=== PATIENT | male | born 1935 | race Caucasian/White ===

== ENCOUNTER 2018-05-12 11:18 | Inpatient (IN) | payer OTHER ==
[~2018-05-12] VITALS: Ht 185.4 cm; Wt 86.4 kg
[~2018-05-12 11:18] MED LIST: ACCUNEB0.63 MG/3 INH; ACID CONTROL20 MG PO; ACYCLOVIR 400400 MG PO; ALBUTEROL2.5 MG/31 INH; ALLEGRA60 MG PO; ALPRAZOLAM 0.0.25 M1 PO; AMOXICILLIN 50500 MG PO; AMOXICILLIN875 MG PO; ANASPAZ0.125 MG PO; ANASPAZ0.125 MG SUBLING; APAP500 PO; CASODEX 50 MG T50 MG PO; CLEAR EYES COMP15 ML OPHTHALMIC; CLOBETASOL PROP60 G3; COMPAZINE10 MG; COMPAZINE10 MG PO; CYCLOSPORINE OPTH; DEXILANT60 MG PO; DIPHEN SW&SWALLOW; DUONEB 2.5-0.5 M3 ML INH; FML 0.1% 10ML10 M1 OPHTHALMIC; FOLIC ACID 40400 MC1 PO; FOLIC ACID PO; FOLIC ACID1 MG; KEFLEX500 MG PO; LASIX 20 MG TAB20 MG PO; LIDO SW&SWALLOW; MUPIROCIN15 GM TP; NAPROSYN500 MG PO; NASONEX17 GM; NORCO 5-325 TA1 EACH; NORCO 5-325 TA1 EACH PO; NYSTATIN SW&SWALLOW; OXYBUTYNIN 5 MG5 M2 PO; OXYCODONE HCL5 M1 PO; PAIN & FEVER325 MG PO; PREDNISONE 10 M10 MG; PREDNISONE 20 M20 M1 PO; PREDNISONE 20 M20 MG PO; PREDNISONE 5 MG5 M1; PREDNISONE 5 MG5 M1 PO; PREVACID 30MG C30 M1 PO; PREVACID30 MG PO; REGLAN 10 MG TA10 MG PO; RESTORIL15 MG PO; SENNA-S TABLET1 EACH PO; TAMSULOSIN HCL0.4 MG PO; VENTOLIN HFA 1818 GM INH; VITAMIN B-12100 MC1 PO; XANAX 0.25 MG0.25 MG PO; [UNRECOGNIZED DRUG - CODE]
[2018-05-12 11:20] VITALS: BP 153/79
[2018-05-12 11:40] LABS: HEMATOCRIT 45.4 % (42.0-52.0); MCH 33.4 pg (26.0-34.0); MCHC 33.2 g/dL (28.0-37.0); MCV 100.6 fL (80.0-100.0); MPV 8.8 fl. (7.2-11.1); NUCLEATED RBCS 0 /100WBC; PLATELET COUNT* 160 thou/uL (150-400); RBC 4.51 mil/uL (4.50-6.00); RDW-CV 13.4 % (10.5-14.5); WBC 20.7 thou/uL (4.0-11.0)
[2018-05-12 11:47] LABS: ANION GAP 5 mmol/L (7-16); BUN 23 mg/dL (7-18); CALCIUM 8.6 mg/dL (8.5-10.1); CHLORIDE 97 mmol/L (98-107); CO2 30 mmol/L (21-32); CREATININE 1.2 mg/dL (0.6-1.3); GLUCOSE 131 mg/dL (70-99); POTASSIUM 4.1 mmol/L (3.5-5.1); SODIUM 132 mmol/L (136-145)
[2018-05-12 11:53] LABS: APTT 30.9 Seconds (25.0-31.3); PROTIME 10.7 Seconds (9.20-11.50)
[2018-05-12 11:58] LABS: ALBUMIN 2.8 g/dL (3.4-5.0); ALKALINE PHOSPHATASE 127 U/L (46-116); NT-PRO BRAIN NAT PEPTIDE 127 pg/mL (<300); SGOT 39 U/L (15-37); SGPT 68 U/L (30-65); TOTAL BILIRUBIN 0.6 mg/dL (<0.1-1.0); TOTAL PROTEIN 7.2 g/dL (6.4-8.2); TROPONIN-I LEVEL <0.06 ng/mL (<0.06)
[2018-05-12 12:23] LABS: ABSOLUTE LYMPHOCYTES 7.9 thou/uL (0.8-5.3); ABSOLUTE MONOCYTES 0.6 thou/uL (0.0-1.2); ABSOLUTE NEUTROPHILS 12.2 thou/uL (1.6-8.1); PLATELET ESTIMATE ADEQUATE
[2018-05-12 12:24] LABS: ANISOCYTOSIS 1+; POIKILOCYTOSIS 1+
[2018-05-12 13:15] LABS: BE -0.2 mmol/L (-2 to +3); HCO3 23.8 mmol/L (22.0-26.0); PCO2 37.2 mmHg (35.0-45.0); PO2 76.2 mmHg (75.0-100.0); pH 7.424 (7.340-7.450)
--- NOTE | 2018-05-12 16:18 | EKG ---
[place] [address] ELECTROCARDIOGRAM REPORT Name: JAMES MIN Room: [place] [address] ADM IN M.R.#: [id number] Admission: 05/12/18 Attend Phys: Debbie Guardado MD Discharge: Date of : 39 Report #: [id number] THIS REPORT FOR: //name// [facility] ED Test Date: 2018-05-12 Test Time: 11:25:28 Pat Name: JAMES MIN Department: Room: [facility] Gender: M Prizer Hand: : 1935 Requested By: Regulo Massey Order Number: [id number] MD: David Hernandez Measurements Intervals [place] Rate: 90 P: 85 CA: 164 QRS: 87 QRSD: 107 T: 44 QT: 350 QTc: 429 Interpretive Statements Sinus rhythm Borderline right axis deviation Compared to ECG 06/24/2013 19:43:30 No significant changes Electronically Signed On 05-12-2018 16:18:41 CDT by David Hernandez [email or web address] <ELECTRONICALLY SIGNED> By: David Hernandez MD, [facility] 05/12/18 1618 1125 1125 David Hernandez MD, FAC /EPI
[2018-05-12 17:27] VITALS: BP 134/81
[2018-05-12 18:00] VITALS: BP 129/52
--- NOTE | 2018-05-12 18:12 | NUR ---
PATIENT PRESENTED TO 218 PER CART THIS EVENING. PATIENT IS A&O X 4. HE DENIES PAIN. PATIENT PLACED ON TELE MONITOR. TELE SHOWS NSR. PATIENT ORIENTED TO ROOM. DIET ORDERED. PATIENT IS RESTING IN BED AT THIS TIME. TELE SHOWS SR. PATIENT AND FAMILY EDUCATED ON FALL PRECAUTIONS.
[2018-05-12] MEDS ORDERED: IMBRUVICA420 MG PO (18:42)
[2018-05-12 21:01] VITALS: BP 164/89
[2018-05-13] VITALS: BP 115/55
[2018-05-13 04:00] VITALS: BP 129/71
--- NOTE | 2018-05-13 05:07 | NUR ---
PT IS ABLE TO COMMUNICATE HIS NEEDS TO STAFF EFFECTIVELY. CURRENT PAIN MEDICATION REGIMEN HAS BEEN ADEQUATE FOR CONTROLLING HIS PAIN UP TO THIS TIME. PT HAS A RIGHT CHEST PORT FOR CHEMO THAT WE ARE NOT ACCESSING AT THIS TIME PER PT'S REQUEST.
[2018-05-13 05:31] LABS: HEMATOCRIT 43.1 % (42.0-52.0); HEMOGLOBIN 14.5 gm/dL (14.0-18.0); MCH 33.7 pg (26.0-34.0); MCHC 33.6 g/dL (28.0-37.0); MCV 100.4 fL (80.0-100.0); MPV 9.1 fl. (7.2-11.1); RBC 4.29 mil/uL (4.50-6.00); RDW-CV 13.9 % (10.5-14.5); WBC 21.1 thou/uL (4.0-11.0)
[2018-05-13 05:34] LABS: CALCIUM 8.6 mg/dL (8.5-10.1); CREATININE 1.2 mg/dL (0.6-1.3); POTASSIUM 3.9 mmol/L (3.5-5.1)
[2018-05-13 08:04] VITALS: BP 153/75
--- NOTE | 2018-05-13 09:26 | NUR ---
ASSUMED CARE OF PT THIS AM AROUND 0715- DIRECTOR OF MECHANICAL ENGINEERING IN PLACE ORDERED, TRACING SR- UPON ASSESSMENT PT NOTED TO BE RESTING IN BED, WATCHING TV- PT A&O X4- CONTINENT OF BOWEL AND BLADDER- UP AD-JUANCHO IN ROOM, STEADY GAIT NOTED-DIMINISHED LUNG SOUNDS NOTED- DYSPNEA NOTED ON EXERTION- VSS, O2 SAT 92% ON 2L VIA NC- COUGH NOTED WITH SMALL THICK YELLOW SPUTUM NOTED- ABDOMEN SOFT/ROUND/NON-TENDER, BS X4 QUADS- LAST BM REPORTED 05/12/18- IV NOTED TO RIGHT AC INTACT AND SL- IV ABT GIVEN THIS AM PRESCRIBED, NO ADVERSE REACTIONS TO NOTE- GOOD PO INTAKE NOTED THIS AM WITH BREAKFAST- PT DENIES ANY C/O PAIN/DISCOMFORT AT THIS TIME- CALL LIGHT AND PERSONAL BELONGINGS WITH IN REACH- HOURLY ROUNDS IN PLACE R/T SAFETY/NEEDS- ALL NEEDS MET AT THIS TIME-WCTM
[2018-05-13 11:47] VITALS: BP 130/69
--- NOTE | 2018-05-13 13:58 | NUR ---
Pt is A&O. Resides at home with his . Normally active and independent. No DME. No hx of HH or SNF. Pt states that he use to have home o2, but does not currently. Pt anticipates that he will need home o2 at dc. Pt's goal is to return home at dc, Pt anticipates dc within the next few days. Following.
[2018-05-13 15:43] VITALS: BP 119/66
--- NOTE | 2018-05-13 16:20 | NUR ---
PT CURRENLTY RESTING IN BED SIDE CHAIR, WATCHING TV- CONTRACT RUNNER IN PLACE ORDERED, TRACING SR- IV TO RIGHT AC INTACT AND SL- GOOD PO INTAKE NOTED THIS SHIFT WITH MEALS- CONTINUES ON O2 AT 2L VIA NC- PT NOTED TO BE UP WALKING AROUND ROOM THIS SHIFT, TOLERATING WELL- DENIES ANY C/O PAIN/DISCOMFORT AT THIS TIME- MAKES NEEDS KNOWN- ALL NEEDS MET AT THIS TIME-WCTM
[2018-05-13 19:30] VITALS: BP 118/69
[2018-05-14] VITALS: BP 114/56
[2018-05-14 05:24] LABS: HEMATOCRIT 39.8 % (42.0-52.0); HEMOGLOBIN 13.3 gm/dL (14.0-18.0); MCH 33.6 pg (26.0-34.0); MCHC 33.5 g/dL (28.0-37.0); MCV 100.5 fL (80.0-100.0); MPV 8.9 fl. (7.2-11.1); RBC 3.96 mil/uL (4.50-6.00); RDW-CV 13.7 % (10.5-14.5); WBC 13.8 thou/uL (4.0-11.0)
[2018-05-14 05:49] LABS: ALBUMIN 2.2 g/dL (3.4-5.0); CALCIUM 8.4 mg/dL (8.5-10.1); MAGNESIUM 2.3 mg/dL (1.8-2.4); TOTAL BILIRUBIN 0.3 mg/dL (<0.1-1.0); TOTAL PROTEIN 5.1 g/dL (6.4-8.2)
--- NOTE | 2018-05-14 06:55 | NUR ---
PATIENT RESTED WELL THROUGH THE NIGHT. UP AD JUANCHO IN ROOM. DENIES PAIN OR NEEDS. REPORT GIVEN TO ONCOMING NURSE.
[2018-05-14 07:47] VITALS: BP 115/67
--- NOTE | 2018-05-14 08:28 | NUR ---
ASSUMED CARE OF PT THIS AM AROUND 714- MS STATUS IN PLACE AND MAINTAINED- UPON ASSESSMENT PT NOTED TO BE UP SITTING IN BED SIDE CHAIR- UP AD-JUANCHO IN ROOM, STEADY GAIT NOTED- CONTINENT OF BOWEL AND BLADDER-DIMINISHED LUNG SOUNDS, COUGH NOTED THIS AM- VSS, ,O2 SAT 91% ON 2L VIA NC- ABDOMEN SOFT/FLAT/NON-TENDER, BS X4 QUADS- LAST BM REPORTED 05/12/18- +1 BLE EDEMA NOTED, LEG ELEVATION ENCOURAGED- IV NOTED TO RIGHT AC INTACT AND SL- IV ABT GIVEN THIS AM PRESCIBED- DENIES ANY C/O PAIN/DISCOMFORT THIS AM- CALL LIGHT AND PERSONLA BELONGINGS WITH IN REACH- HOURLY ROUNDS IN PLACE R/T SAFETY/NEEDS- ALL NEEDS MET AT THIS TIME-WCTM
[2018-05-14 12:00] VITALS: BP 130/67
--- NOTE | 2018-05-14 16:24 | NUR ---
PT ARLEENENLTY RESTING IN BED SIDE CHAIR IN ROOM- NOTED TO JOHN UP ABULATING FREQUENTLY IN ROOM, TOLERATING WELL- CONTIUES ON 2L O2 PER NC- IV TO RIGHT AC INTACT AND SL- GOOD PO INTAKE NOTES WITH MEALS- DENIES ANY C/O PAIN/DISCOMFORT AT THIS TIME- ORDERS RECIEVED THIS SHIFT FOR PT TO TRANSFER TO MED SURG ROOM OF 305- REPORT GIVEN TO ADOLPH QUIÑONES TO ASSUME CARE VIA PHONE WITH ALL QUESTIONS AND CONCERNS ADDRESSED- BELONGINGS TO BE PACKED AND PT TRANSFERED SHORTLY- ALL NEEDS MET AT THIS TIME-WCTM
[2018-05-14 16:37] VITALS: BP 126/66
[2018-05-14 17:15] VITALS: BP 155/84
--- NOTE | 2018-05-14 17:15 | NUR ---
ASSUMED CARE OF PATIENT AT THIS TIME. REPORT RECEIVED FROM MAKEDA FARFAN. PATIENT SETTLED TO ROOM. VITALS TAKEN AND DOCUMENTED. PATIENT DENIES ANY PAIN. PATIENT DENIES ANY NEEDS AT THIS TIME. CALL LIGHT WITHIN REACH. WILL CONTINUE TO MONITOR.
[2018-05-14 22:04] VITALS: BP 134/74
[2018-05-15 05:05] LABS: ABSOLUTE LYMPHOCYTES 3.2 thou/uL (0.8-5.3); ABSOLUTE MONOCYTES 0.3 thou/uL (0.0-1.2); ABSOLUTE NEUTROPHILS 9.8 thou/uL (1.6-8.1); BASOPHILS 0.1 %; HEMATOCRIT 41.8 % (42.0-52.0); HEMOGLOBIN 13.8 gm/dL (14.0-18.0); LYMPHOCYTES 24.1 %; MCH 33.1 pg (26.0-34.0); MCHC 32.9 g/dL (28.0-37.0); MCV 100.5 fL (80.0-100.0); MONOCYTES 2.6 %; MPV 8.9 fl. (7.2-11.1); NUCLEATED RBCS 0 /100WBC; PLATELET COUNT* 137 thou/uL (150-400); POLYS 73.2 %; RBC 4.16 mil/uL (4.50-6.00); RDW-CV 13.8 % (10.5-14.5); WBC 13.4 thou/uL (4.0-11.0)
[2018-05-15 05:07] LABS: CALCIUM 8.8 mg/dL (8.5-10.1); CREATININE 1.1 mg/dL (0.6-1.3)
[2018-05-15 05:29] LABS: PREALBUMIN 17.1 mg/dL (18.0-35.7)
--- NOTE | 2018-05-15 05:47 | NUR ---
PT SLEPT ON AND OFF. TESSALON HOUSTON GIVEN AT SHIFT CHANGE FOR CO FREQUENT COUGH WITH FAIR RESULT. O2 2L NC. RAC SL, SOLUMEDROL GIVEN ORDERED. HYDROCODONE GIVEN WITH FAIR RESULT. RT TX GIVEN ORDERED. UP AD JUANCHO IN ROOM WITH O2. AM LABS DRAWN. ABLE TO USE CALL LITE AND MAKE NEEDS KNOWN.
[2018-05-15 08:00] VITALS: BP 92/70
[2018-05-15 16:36] VITALS: BP 146/81
--- NOTE | 2018-05-15 18:11 | NUR ---
PATIENT RESTING UP IN CHAIR. PATIENT DENIES ANY PAIN. PATIENT IS UP AD JUANCHO IN ROOM WITH OXYGEN. PATIENT WOULD LIKE TO WEAN OFF OXYGEN BEFORE DISCHARGE. PATIENT IS ON 2L/NC AT THIS TIME. PATIENT IS SOB WITH EXERTION. PATIENT HAS FAIR APPETITE. PATIENT DENIES ANY NEEDS AT THIS TIME. WILL CONTINUE TO MONITOR.
[2018-05-16] VITALS: BP 109/58
[2018-05-16 04:56] LABS: HEMATOCRIT 39.3 % (42.0-52.0); HEMOGLOBIN 13.2 gm/dL (14.0-18.0); MCH 33.6 pg (26.0-34.0); MCHC 33.6 g/dL (28.0-37.0); MCV 99.9 fL (80.0-100.0); MPV 9.2 fl. (7.2-11.1); NUCLEATED RBCS 0 /100WBC; PLATELET COUNT* 114 thou/uL (150-400); RBC 3.94 mil/uL (4.50-6.00); RDW-CV 13.8 % (10.5-14.5); WBC 11.2 thou/uL (4.0-11.0)
[2018-05-16 06:07] LABS: ALBUMIN 2.4 g/dL (3.4-5.0); CALCIUM 8.2 mg/dL (8.5-10.1); CREATININE 1.1 mg/dL (0.6-1.3); POTASSIUM 4.5 mmol/L (3.5-5.1); TOTAL BILIRUBIN 0.4 mg/dL (<0.1-1.0)
[2018-05-16 06:08] LABS: ABSOLUTE NEUTROPHILS 8.2 thou/uL (1.6-8.1); METAMYELOCYTES 1 %; MYELOCYTES 1 %
[2018-05-16 06:09] LABS: TOXIC GRANULATION 3+
[2018-05-16 06:11] LABS: ABSOLUTE LYMPHOCYTES 2.9 thou/uL (0.8-5.3); ABSOLUTE MONOCYTES 0.1 thou/uL (0.0-1.2)
[2018-05-16 06:14] LABS: PLATELET ESTIMATE DECREASED
--- NOTE | 2018-05-16 07:39 | NUR ---
PT RECEIVED TESSALON PERLE AND MUCINEX TABS AT HS AND PT STATES HIS COUGH WAS A LITTLE BETTER OVERNIGHT. STATES HE STILL DID NOT SLEEP MUCH BUT GOT SOME REST. O2 2L. RT TX GIVEN SCHEDULED. UP AD JUANCHO IN ROOM. AOX4, PLEASANT. ABLE TO USE CALL LITE AND MAKE NEEDS KNOWN. MINH THAPA. AM LABS.
[2018-05-16 08:40] VITALS: BP 134/75
--- NOTE | 2018-05-16 16:09 | NUR ---
SIPHONER SPOKE TO PATIENT TO DISCUSS DISCHARGE PLANNING NEEDS. PATIENT INFORMS THAT RT INFORMED HIM THAT HE MAY NEED O2 AT D/C, BUT HE DOES NOT WANT IT. REST AND EXERCIES SATS ORDRED. CM WILL REMAIN AVAILABLE TO ASSIST AND FOLLOW NEEDED.
[2018-05-16 16:42] VITALS: BP 118/60
--- NOTE | 2018-05-16 18:35 | NUR ---
PATIENT UP IN CHAIR. PATIENT DENIES ANY PAIN. PATIENT HAS COUGH, TESSALON PERLE AND MUCINEX GIVEN WITH SOME RELIEF. PATIENT UNABLE TO SLEEP WELL DUE TO COUGH. PATIENT HAS OXYGEN ON AT 2L/NC. PATIENT IS UP AD JUANCHO IN ROOM. PATIENT DENIES NAY NEEDS AT THIS TIME. CALL LIGHT WITHIN REACH. WILL CONTINUE TO MONITOR.
[2018-05-16 20:00] VITALS: BP 118/84
--- NOTE | 2018-05-17 01:09 | NUR ---
ASSESSMNT: PT REMAIN ALERT AND ORIENT TIMES FOUR. PT WAS SITTING UP IN THE CHAIR AT SHIFT CHANGE. DENIES PAIN. DOES HAVE A PRODUCTIVE COUGH, WITH THICK TANNISH-YELLOWISH SPUTUM PER PT. TESSILON PEARLES GIVE PT LOTS OF RELIEF FROM COUGHING PRN. PT HAD 3+ EDEMA IN [place] FEET AND 2+ EDEMA IN [place] LEGS. THTH APPLIED AND PT WAS GRATEFUL FOR THEM. BREATHING TX CONTINUE ORDERED. VSS, AFEBRILE. TOLERATING PO INTAKE AND REGULAR DIET, DOES STATE THAT HE DOES NOT EAT VERY MUCH. UP AD JUANCHO WITH STEADY GAIT. ABD DISTENDED, SOFT/ROUND. BM TODAY. SLOW PROGRESS TOWARDS DC GOALS. WILL CONTINUE TO MONITOR.
[2018-05-17 04:36] LABS: ABSOLUTE LYMPHOCYTES 4.3 thou/uL (0.8-5.3); ABSOLUTE MONOCYTES 0.6 thou/uL (0.0-1.2); ABSOLUTE NEUTROPHILS 9.8 thou/uL (1.6-8.1); BASOPHILS 0.2 %; HEMATOCRIT 43.2 % (42.0-52.0); HEMOGLOBIN 14.4 gm/dL (14.0-18.0); LYMPHOCYTES 28.9 %; MCH 33.6 pg (26.0-34.0); MCHC 33.3 g/dL (28.0-37.0); MCV 100.9 fL (80.0-100.0); MONOCYTES 4.3 %; MPV 9.2 fl. (7.2-11.1); NUCLEATED RBCS 0 /100WBC; PLATELET COUNT* 137 thou/uL (150-400); POLYS 66.6 %; RBC 4.28 mil/uL (4.50-6.00); RDW-CV 13.7 % (10.5-14.5); WBC 14.8 thou/uL (4.0-11.0)
[2018-05-17 04:44] LABS: CALCIUM 8.5 mg/dL (8.5-10.1); CREATININE 1.1 mg/dL (0.6-1.3); POTASSIUM 4.3 mmol/L (3.5-5.1)
[2018-05-17 04:57] LABS: PREALBUMIN 26.3 mg/dL (18.0-35.7)
[2018-05-17 07:30] VITALS: BP 128/74
--- NOTE | 2018-05-17 14:10 | NUR ---
EX OX completed, Pt does not qualify for home o2. CM faxed nebulizer script to Sandy at [facility] to be delivered to Pt's hospital room. Anticipate dc later on charity.
[2018-05-17 16:00] VITALS: BP 108/66
[2018-05-17] MEDS ORDERED: PROTONIX40 M1 PO (16:36)
[2018-05-17] MEDS ORDERED: LEVAQUIN 500 M500 M2 PO (16:36)
[2018-05-17] MEDS ORDERED: TESSALON PERLE100 M1 PO (16:37)
[2018-05-17 16:41] VITALS: BP 108/66
--- NOTE | 2018-05-17 18:10 | NUR ---
PATIENT A&OX4, 2L O2 DECREASED TO ROOM AIR, WALKING AND STATS ABOVE 91% ROOM AIR. IV RIGHT AC, IV LEAKING. NEW IV PLACED IN RIGHT AC FOR CTA. CTA NEGATIVE FOR PE. PATIENT UP AD JUANCHO, STEADY GIAT. NO C/O PAIN/N/V. NO OTHER CONCERNS AT THIS TIME. PATIENT DISCHARGED. REVEIWED PAPERWORK WITH PATIENT, WHILE SPOUSE AT BEDSIDE. VERBALIZES UNDERSTANDING, ALL QUESTIONS AND CONCERNS ANSWERED. PATIENT LEFT UNIT AT 1715 VIA W/C WITH SPOUSE AND NURSING STAFF. ALL BELONGINS TAKEN WITH PATIENT. APPROPRIATE AND COOPORATIVE WITH CARE.
== END 2018-05-17 17:15 | disposition home or self-care (01) | DRG 177 ==
LOC: M.ERS 11:18 → M.TBA-ER 12:28 → M.2W 12:28 → M.3W 05-14 17:02
PROVIDERS: Family Medicine; Internal Medicine; ADMIT Internal Medicine
DX: J15.6 Pneumonia due to other Gram-negative bacteria (principal); J96.01 Acute respiratory failure with hypoxia; J44.0 Chronic obstructive pulmonary disease with (acute) lower respiratory infection; J44.1 Chronic obstructive pulmonary disease with (acute) exacerbation; R65.10 Systemic inflammatory response syndrome (SIRS) of non-infectious origin without acute organ dysfunction; C85.90 Non-Hodgkin lymphoma, unspecified, unspecified site; R60.9 Edema, unspecified; K21.9 Gastro-esophageal reflux disease without esophagitis; Z85.46 Personal history of malignant neoplasm of prostate; Z92.3 Personal history of irradiation; Z90.49 Acquired absence of other specified parts of digestive tract; Z88.1 Allergy status to other antibiotic agents; Z91.048 Other nonmedicinal substance allergy status; Z87.891 Personal history of nicotine dependence

== ENCOUNTER → 2018-06-04 | Outpatient (CLI) | payer OTHER ==
[~2018-06-04] MED LIST changes: +AMITRIPTYLINE H25 M2 PO; +ANORO ELLIPTA1 EACH INH; +BEVESPI AEROS10.7 GM INH; +DECADRON0.5 MG/5 M PO; +IMBRUVICA140 MG PO; +IMBRUVICA420 MG PO; +LEVAQUIN 500 M500 M2 PO; +NIZORAL120 ML TOP; +PEPCID20 MG PO; +PERIDEX 0.12%473 M1 SSP; +PREDNISOLONE ACE5 ML OPHTHALMIC; +PROTONIX40 M1 PO; +STIOLTO RESPIMAT4 GM INH; +TESSALON PERLE100 M1 PO; +THERAGRAN STRE1 EACH PO
== END ==
LOC: M.RAD 11:13
DX: J98.4 Other disorders of lung (principal); J18.1 Lobar pneumonia, unspecified organism

== ENCOUNTER 2018-06-20 09:53 | Inpatient (IN) | payer OTHER ==
[~2018-06-20] VITALS: Ht 185.4 cm; Wt 81.2 kg
[~2018-06-20 09:53] MED LIST changes: -AMITRIPTYLINE H25 M2 PO; -ANORO ELLIPTA1 EACH INH; -BEVESPI AEROS10.7 GM INH; -DECADRON0.5 MG/5 M PO; -IMBRUVICA140 MG PO; -NIZORAL120 ML TOP; -PEPCID20 MG PO; -PERIDEX 0.12%473 M1 SSP; -PREDNISOLONE ACE5 ML OPHTHALMIC; -STIOLTO RESPIMAT4 GM INH; -THERAGRAN STRE1 EACH PO
[2018-06-20 09:58] VITALS: BP 180/95
[2018-06-20] MEDS ORDERED: AMITRIPTYLINE H25 M2 PO (10:06)
[2018-06-20] MEDS ORDERED: ANORO ELLIPTA1 EACH INH (10:06)
[2018-06-20] MEDS ORDERED: BEVESPI AEROS10.7 GM INH (10:07)
[2018-06-20] MEDS ORDERED: PERIDEX 0.12%473 M1 SSP (10:08)
[2018-06-20] MEDS ORDERED: DECADRON0.5 MG/5 M PO (10:09)
[2018-06-20] MEDS ORDERED: PEPCID20 MG PO (10:09)
[2018-06-20] MEDS ORDERED: NIZORAL120 ML TOP (10:10)
[2018-06-20] MEDS ORDERED: IMBRUVICA140 MG PO (10:10)
[2018-06-20] MEDS ORDERED: PREDNISOLONE ACE5 ML OPHTHALMIC (10:18)
[2018-06-20] MEDS ORDERED: STIOLTO RESPIMAT4 GM INH (10:19)
[2018-06-20] MEDS ORDERED: THERAGRAN STRE1 EACH PO (10:19)
[2018-06-20 10:29] LABS: HEMATOCRIT 45.3 % (42.0-52.0); HEMOGLOBIN 15.2 gm/dL (14.0-18.0); MCHC 33.5 g/dL (28.0-37.0); MCV 98.5 fL (80.0-100.0); MPV 8.7 fl. (7.2-11.1); NUCLEATED RBCS 0 /100WBC; PLATELET COUNT* 228 thou/uL (150-400); RBC 4.59 mil/uL (4.50-6.00); RDW-CV 14.5 % (10.5-14.5); WBC 25.7 thou/uL (4.0-11.0)
[2018-06-20 10:58] LABS: ANION GAP 6 mmol/L (7-16); BUN 38 mg/dL (7-18); CALCIUM 8.6 mg/dL (8.5-10.1); CHLORIDE 93 mmol/L (98-107); CO2 30 mmol/L (21-32); CREATININE 1.2 mg/dL (0.6-1.3); GLUCOSE 104 mg/dL (70-99); POTASSIUM 3.9 mmol/L (3.5-5.1); SODIUM 129 mmol/L (136-145)
[2018-06-20 11:09] LABS: ABSOLUTE LYMPHOCYTES 6.2 thou/uL (0.8-5.3); ABSOLUTE MONOCYTES 0.5 thou/uL (0.0-1.2); ALBUMIN 3.2 g/dL (3.4-5.0); ALKALINE PHOSPHATASE 55 U/L (46-116); ANISOCYTOSIS 1+; NT-PRO BRAIN NAT PEPTIDE 48 pg/mL (<300); PLATELET ESTIMATE ADEQUATE; POIKILOCYTOSIS 1+; SGOT 30 U/L (15-37); SGPT 34 U/L (30-65); TOTAL BILIRUBIN 0.6 mg/dL (<0.1-1.0); TOTAL PROTEIN 6.3 g/dL (6.4-8.2); TROPONIN-I LEVEL <0.06 ng/mL (<0.06)
--- NOTE | 2018-06-20 13:29 | NUR ---
EDWIGE NOTIFIED UPON PT RETURN FROM CT. PT CONNECTED TO O2 AND MONITOR
[2018-06-20 13:54] VITALS: BP 117/63
[2018-06-20 14:12] VITALS: BP 116/72
--- NOTE | 2018-06-20 15:57 | NUR ---
PATIENT CAME TO THE FLOOR FROM THE ER VIA CART IN STABLE CONDITION ON 2 LITERS OF OXYGEN. UP AD JUANCHO IN ROOM. ROOM ORIENTATION AND ADMISSION ASSESSMENT DONE. QUESTIONS ANSWERED FOR PATIENT AND . CONSULT CALLED INTO DR YEPEZ. CALL LIGHT IS IN REACH, IS AT BEDSIDE. WILL CONTINUE TO MONITOR.
--- NOTE | 2018-06-20 17:05 | EKG ---
[place] [address] ELECTROCARDIOGRAM REPORT Name: JAMES MIN Room: [address] ADM IN .R.#: [id number] Admission: 06/20/18 Attend Phys: Jason Ferreira MD Discharge: Date of : 39 Report #: [id number] THIS REPORT FOR: //name// [facility] ED Test Date: 2018-06-20 Test Time: 10:01:10 Pat Name: JAMES MIN Department: Room: [facility] Gender: M Mess Attendant: BRITANY : 1935 Requested By: Kevin Rubio Order Number: [id number] MD: Osiel Jonas Measurements Intervals [place] Rate: 104 P: 90 MA: 168 QRS: 92 QRSD: 98 T: 23 QT: 306 QTc: 403 Interpretive Statements Sinus tachycardia supraventricular premature complex Biatrial enlargement Compared to ECG 05/12/2018 11:25:28 Sinus rhythm no longer present Electronically Signed On 06-20-2018 17:04:51 PUBLICATION SPECIALIST by Osiel Jonas [email or web address] <ELECTRONICALLY SIGNED> By: Osiel Jonas MD, [facility] 06/20/18 1704 1001 1001 Osiel Jonas MD, [facility] /EPI
--- NOTE | 2018-06-20 17:25 | NUR ---
PATIENT HAS BEEN ALERT AND ORIENTED SINCE COMING UP FROM THE ER. VITAL SIGNS STABLE ON 2 LITERS OF OXYGEN. UP AD JUANCHO IN ROOM, IS WITH PATIENT. APPETITE IS GOOD. IV WORKS WELL IN LEFT AC ANTIBIOTICS RUNNING WELL. CALL LIGHT IS IN REACH, WILL CONTINUE TO MONITOR.
[2018-06-20 20:00] VITALS: BP 131/61
[2018-06-21 03:57] LABS: ABSOLUTE LYMPHOCYTES 2.6 thou/uL (0.8-5.3); ABSOLUTE MONOCYTES 0.5 thou/uL (0.0-1.2); ABSOLUTE NEUTROPHILS 16.9 thou/uL (1.6-8.1); BASOPHILS 0.1 %; HEMATOCRIT 38.6 % (42.0-52.0); LYMPHOCYTES 13.1 %; MCH 32.9 pg (26.0-34.0); MCHC 33.2 g/dL (28.0-37.0); MONOCYTES 2.6 %; MPV 8.9 fl. (7.2-11.1); NUCLEATED RBCS 0 /100WBC; POLYS 84.2 %; RBC 3.89 mil/uL (4.50-6.00); RDW-CV 14.5 % (10.5-14.5); WBC 20.1 thou/uL (4.0-11.0)
[2018-06-21 04:22] LABS: CREATININE 1.1 mg/dL (0.6-1.3); POTASSIUM 4.4 mmol/L (3.5-5.1)
[2018-06-21 04:36] LABS: HEMOGLOBIN 12.8 gm/dL (14.0-18.0); PLATELET COUNT* 153 thou/uL (150-400)
[2018-06-21 08:15] VITALS: BP 98/71
[2018-06-21 16:42] VITALS: BP 118/68
--- NOTE | 2018-06-21 18:46 | NUR ---
Assumed care of pt at 0700 this AM. Pt cont on IV ABT for pneumonia. Productive cough is noted with thick yellow sputum, a sample was sent to lab per orders. this nurse spoke to Oncologist Dr. Salcido this afternoon, we are to cont to hold chemo medications until further notice. Pt has been afebrile this shift, is up ab marisol in room. Hourly rounding maintained, will cont to monitor, call light in reach.
[2018-06-21 20:00] VITALS: BP 126/75
[2018-06-22 00:09] LABS: URINE BILIRUBIN NEGATIVE (Negative); URINE BLOOD NEGATIVE (Negative); URINE CLARITY CLEAR; URINE COLOR YELLOW; URINE GLUCOSE-RANDOM NEGATIVE (Negative); URINE KETONES NEGATIVE (Negative); URINE LEUKOCYTES-REFLEX NEGATIVE (Negative); URINE NITRITE-REFLEX NEGATIVE (Negative); URINE PROTEIN NEGATIVE (Negative); URINE SPECIFIC GRAVITY 1.015 (1.005-1.030); URINE UROBILINOGEN 0.2 E.U./dl (0.2-1.0)
[2018-06-22 03:58] LABS: ABSOLUTE LYMPHOCYTES 2.2 thou/uL (0.8-5.3); ABSOLUTE MONOCYTES 0.5 thou/uL (0.0-1.2); ABSOLUTE NEUTROPHILS 13.9 thou/uL (1.6-8.1); HEMATOCRIT 40.3 % (42.0-52.0); HEMOGLOBIN 13.1 gm/dL (14.0-18.0); LYMPHOCYTES 13.4 %; MCH 32.5 pg (26.0-34.0); MCHC 32.5 g/dL (28.0-37.0); MONOCYTES 3.2 %; MPV 8.8 fl. (7.2-11.1); NUCLEATED RBCS 0 /100WBC; PLATELET COUNT* 157 thou/uL (150-400); POLYS 83.4 %; RBC 4.03 mil/uL (4.50-6.00); WBC 16.6 thou/uL (4.0-11.0)
[2018-06-22 04:26] LABS: ALBUMIN 2.4 g/dL (3.4-5.0); CALCIUM 8.8 mg/dL (8.5-10.1); CREATININE 1.2 mg/dL (0.6-1.3); MAGNESIUM 2.1 mg/dL (1.8-2.4); TOTAL BILIRUBIN 0.4 mg/dL (<0.1-1.0); TOTAL PROTEIN 5.3 g/dL (6.4-8.2)
--- NOTE | 2018-06-22 05:22 | NUR ---
PATIENT DENIES PAIN AND DISCOMFORT THIS SHIFT. ONLY CONCERN/COMPLAINT IS COUGH. PATIENT GIVEN HOT TEA WITH HONEY TO SOOTHE THROAT AND COUGH. PATIENT STATES THIS HELPED. PATIENT, HOWEVER, HAS NOT BEEN ABLE TO SLEEP MUCH DESPITE MEASURES TO PROMOTE REST AND COMFORT. PATIENT BELIEVES IT IS DUE TO STEROIDS. HOURLY ROUNDING OBSERVED. CALL LIGHT WITHIN REACH
[2018-06-22 08:25] VITALS: BP 113/81
--- NOTE | 2018-06-22 09:30 | CON ---
[address] [address] CONSULTATION Name: JAMES MIN JR Room: [address] IN ..#: [id number] Admission: 06/20/18 Attend Phys: Jason Ferreira MD Discharge: Date of : 39 Report #: [id number] THIS REPORT FOR: //name// CC: Jason Serrano DATE OF SERVICE: 06/21/2018 CONSULTATION: Infectious diseases. HISTORY OF PRESENT ILLNESS: James Min is an 82-year-old white male admitted to [facility] on 06/20 with 3-day history of increased shortness of breath, feeling fevers at home with cough. The patient currently is on a new chemotherapy agent for non-Hodgkin's lymphoma. He has been tolerating the medication. He presents with what appeared to be community-acquired pneumonia. The patient has a past history of COPD, but is generally controlled with bronchodilators. He currently is on steroid as well. PAST MEDICAL HISTORY: Significant for COPD, lymphoma. He has had a history of prostate cancer in 2010. PAST SURGICAL HISTORY: Includes appendectomy, cholecystectomy, and hernia repair. ALLERGIES: He thinks he may have a possible allergy to AZITHROMYCIN. He had a rash while on therapy with that in the past. FAMILY HISTORY: Noncontributory. SOCIAL HISTORY: The patient is . He lives with his . He is retired from doing accounting and bookkeeping type office work. He does not use tobacco, alcohol, nor drugs. REVIEW OF SYSTEMS: GENERAL: The patient felt feverish, but did not actually measure any fevers. No chills, rigors or sweats. The patient had general weakness and malaise. ENT: The patient denies sinus congestion, drainage, sore throat or trouble swallowing. CHEST: The patient has cough, which has been intermittently productive of greenish sputum. He has no chest pain. He did have dyspnea, which is improved with treatment and supplemental oxygen. CARDIAC: He denies any cardiac symptoms. No angina, syncope, palpitation. GASTROINTESTINAL: The patient denies nausea, vomiting, diarrhea, constipation. GENITOURINARY: No complaints. Prostate is doing okay. EXTREMITIES: [place] [address] CONSULTATION Name: JAMES MIN Room: [address]#: [id number] Admission: 06/20/18 Attend Phys: Jason Ferreira MD Discharge: Date of : 39 Report #: [id number] PHYSICAL EXAMINATION: GENERAL: The patient appears his stated age, alert, oriented, comfortable, not in any distress. VITAL SIGNS: Show the patient has been afebrile since coming to the hospital. SKIN: Shows a lot of ecchymoses and purpura, but no rash, lesion, wounds nor exanthems. ENT: Negative. MENTAL STATUS: Normal and appropriate. HEART: Sounds S1, S2. Regular rate and rhythm. LUNGS: Breath sounds are diminished. ABDOMEN: Thin, soft, not tender. EXTREMITIES: Unremarkable. LABORATORY DATA: [place] [address] [address] today, hemoglobin is 12.8, platelets [id number]. Electrolytes, BUN and creatinine, liver function tests, BNP are all normal. IMAGING DATA: The radiology department reports CT angiogram and chest x-ray have right lower lobe and right middle lobe infiltrates. The CT noted a lot of mucus debris in the airway with a possible postobstructive component to the infiltrate and also has incidental note of a 1.7 x 1.3 thyroid nodule. ASSESSMENT AND PLAN: In summary, the patient on chemotherapy for lymphoma who developed community-acquired pneumonia superimposed on chronic obstructive pulmonary disease. He is improved with the first 24 hours of therapy including steroids, antibiotics, and oxygen. At this time, I would like to try to obtain a sputum for culture. We can check for streptococcal and Legionella antigens in the urine as well. If the patient is not improved, he may benefit from bronchoscopy to remove the bronchial debris and obtain a deep specimen. While the patient is in the hospital, we can do TSH and a T4 because of the thyroid nodule. We will continue incentive spirometry. I concur with the vancomycin and Zosyn as empiric treatment for pneumonia in a patient immunocompromised by lymphoma and chemotherapy. We obtained a sputum culture. If that is positive, we may be able to deescalate the therapy. I appreciate the opportunity of input in the care of this pleasant gentleman. Thank you for requesting infectious disease input. <ELECTRONICALLY SIGNED> By: David Ascencio MD 06/22/18 0930 [id number] Ascencio MD /camila
[2018-06-22 15:43] VITALS: BP 98/76
[2018-06-22 16:50] VITALS: BP 113/76
--- NOTE | 2018-06-22 17:28 | NUR ---
1400 While doing vital signs the aide caring for pt informed this nurse that pts heart rate was elevated. This nurse went in and listened to apical pulse. On ausculatation pts HR was tachy and irregluar. an EKG was done and showed A-Fib. Another nurse assisted this nurse in calling Dr. while O2 2L via NC was applied to pt. 1420 Order for Diltiazem drip was initiated STAT @ 5mg/HR
--- NOTE | 2018-06-22 17:33 | NUR ---
PT TRANSFERRED TO ROOM 219 VIA BED AT APPROXIMATELY 1650 WITH NEW ONSET AFIB. REPORT RECEIVED FROM ADOLPH SURESH. PT ORIENTED TO ROOM AND CALL LIGHT. THIS RN AGREES WITH PREVIOUS NURSE NAVIGATOR. PT A&0X4. DENIES ANY PAIN. PT ON 2L NC SAT 94%, PT STATES HE HAS SHORTNESS OF BREATH WITH EXERTION. PT HAS PRODUCTIVE COUGH-SPUTUM NOT OBSERVED. AT BEDSIDE AND UPDATED ON CURRENT PLAN OF CARE. PT TRACING AFIB ON THE PLYWOOD STOCK GRADER. RATE IN THE LOW 100'S, CARDIZEM GTT INFUSING AT 5ML/HR, BLOOD PRESSURE STABLE WITH CARDIZEM GTT. PT UP SBA TO BATHROOM. PT VOIDS PER URINAL. MEDICATIONS PER MAR. PT REPOSITIONS SELF. HOURLY ROUNDING OBSERVED, BED IN LOW POSITION. CALL LIGHT WITHIN REACH. WILL CONTINUE PLAN OF CARE.
--- NOTE | 2018-06-22 17:34 | NUR ---
1440 Pt transferred to [facility] room 219 via bed. This nurse oriented pt to new room and talked with pts nurse Ashtyn, heart monitor applied by aide. Pts ABT in [facility] for 1430 dose was transferred to [facility].
[2018-06-22 20:00] VITALS: BP 95/68
--- NOTE | 2018-06-22 20:00 | NUR ---
RECEIVED REPORT AND ASSUMED CARE OF PT, ASSESSMENT COMPLETED. PT SITTING UP IN CHAIR. O2 ON AT 2L/NC. NO SOB NOTED. HAVING A FREQ MOIST CONGESTED COUGH BUT NON-PROD. PT AMBULATING AROUND ROOM INDEPENDENTLY WITH STEADY GAIT. TELEMETRY ON SHOWING SA WITH 1ST AVB, BBB, PAC, PVC. WILL CONT TO MONITOR AND ASSIST NEEDED.
[2018-06-23 00:51] VITALS: BP 111/70
[2018-06-23 04:56] VITALS: BP 95/44
[2018-06-23 05:52] LABS: ABSOLUTE LYMPHOCYTES 2.9 thou/uL (0.8-5.3); ABSOLUTE MONOCYTES 1.3 thou/uL (0.0-1.2); ABSOLUTE NEUTROPHILS 15.5 thou/uL (1.6-8.1); BASOPHILS 0.2 %; HEMATOCRIT 41.8 % (42.0-52.0); HEMOGLOBIN 14.1 gm/dL (14.0-18.0); LYMPHOCYTES 14.8 %; MCH 33.4 pg (26.0-34.0); MCHC 33.6 g/dL (28.0-37.0); MCV 99.3 fL (80.0-100.0); MONOCYTES 6.6 %; MPV 8.8 fl. (7.2-11.1); NUCLEATED RBCS 0 /100WBC; PLATELET COUNT* 166 thou/uL (150-400); POLYS 78.4 %; RBC 4.21 mil/uL (4.50-6.00); RDW-CV 14.5 % (10.5-14.5); WBC 19.8 thou/uL (4.0-11.0)
[2018-06-23 06:11] LABS: PREALBUMIN 26.1 mg/dL (18.0-35.7)
[2018-06-23 06:15] LABS: ALBUMIN 2.5 g/dL (3.4-5.0); CALCIUM 8.6 mg/dL (8.5-10.1); CREATININE 1.1 mg/dL (0.6-1.3); POTASSIUM 3.8 mmol/L (3.5-5.1); TOTAL BILIRUBIN 0.4 mg/dL (<0.1-1.0); TOTAL PROTEIN 5.4 g/dL (6.4-8.2)
--- NOTE | 2018-06-23 06:18 | NUR ---
AWAKE FREQ DURING NIGHT. BLE REMAINS 3+ EDEMA WITH ELEVATION IN RECLINER. TELEMETRY CONT TO SHOW A-FIB WITH CARDIZEM AT 5 CC/HR WITH RATE LOW 100'S. UNABLE TO ADVANCE RATE DUE TO BP. HS GOALS OF REST AND SAFETY PARTICALLY ACHIEVED. HOURLY ROUNDING OBSERVED. CONT TO HAVE OCC MOIST CONGESTED COUGH.
[2018-06-23 08:00] VITALS: BP 88/71
--- NOTE | 2018-06-23 08:00 | NUR ---
ASSUMED PT. CARE AND RECEIVED REPORT AT 0730. PT A/OX4, BP SOFT AT 88/71, ALL OTHER VSS. MONITOR ON TRACING AFIB. PT. DENIES CURRENT PAIN. STATES HE IS HAVING SOME SOA WITH ACTIVITY. ON 2L NC @ 95%. FULL ASSESSMENT COMPLETED, REFER TO CHARTING. CARDIZEM GTT AT 5 ML/HR. STOPPED AT THIS TIME DUE TO SOFT BP. CALL LIGHT IN REACH, WILL CONTINUE WITH PLAN OF CARE.
[2018-06-23 11:32] VITALS: BP 112/64
--- NOTE | 2018-06-23 12:42 | CON ---
[address] [address] CONSULTATION Name: JAMES MIN JR Room: [address] IN M.R.#: [id number] Admission: 06/20/18 Attend Phys: Jason Ferreira MD Discharge: Date of : 37 Report #: [id number] THIS REPORT FOR: //name// CC: Jason Serrano DATE OF SERVICE: 06/21/[address] Ferreira. INDICATION FOR CONSULTATION: Recurrent pulmonary infiltrates. HISTORY OF PRESENT ILLNESS: This is an 82-year-old gentleman. He states that he follows with a associate working out of [place]. The patient also reports that he has been told that he has a history of COPD as noted; however, the patient has only had a limited history of smoking only about 10 years, discontinued in the 1960s. The patient is on long-term prednisone; however, this appears that it is for a history of non-Hodgkin lymphoma and not COPD. At this time, the patient is admitted with pulmonary infiltrates. He in fact had a recent admission to this hospital in May as well and did have atypical looking infiltrates in bilateral lung bases, more at the right lung base. He was treated with levofloxacin at that time. The patient says that he was coughing and bringing up large amounts of sputum, which were yellow as well as wet during the last hospitalization. He says that with therapy, this had improved and therefore eventually he was discharged. He says, however, that about 10 days later, symptoms began to reoccur. The patient's main symptom remains cough with sputum production. He again is reporting white as well as yellow sputum. He does report that he has no shortness of breath than his baseline as well; however, shortness of breath is not a major complaint for him. He does not have chest pain. He has not had a fever. He has not had a sore throat. He does not have swelling of lower extremities or calf pain. The patient answers to the negative for 12 questions for review of systems except as mentioned above. PAST MEDICAL AND SURGICAL HISTORY: As mentioned above, he is reported to have COPD; however, he only has a limited history of smoking, non-Hodgkin lymphoma. The patient says this was diagnosed based on biopsy done from his abdomen. I do not have details available. Gastroesophageal reflux disease, tonsillectomy, right upper arm fibroma, appendectomy, cholecystectomy, hernia repair, hydrocele surgery. SOCIAL HISTORY: He says he smoked about 1 pack a day for 10 years. He discontinued back in the 1960s, has been a nonsmoker since then. 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 There is no known history of heavy alcohol use [place] [address] CONSULTATION Name: JAMES MIN JR Room: [address]#: [id number] Admission: 06/20/18 Attend Phys: Jason Ferreira MD Discharge: Date of : 37 Report #: [id number] CURRENT MEDICATIONS: List in [place] reviewed. HOME MEDICATIONS: List also in [place] reviewed. Long-term use of prednisone 5 mg daily is noted, recent use of levofloxacin during the previous hospitalization here is noted. FAMILY HISTORY: There is no pertinent family history. PHYSICAL EXAMINATION: GENERAL: He is alert, awake and oriented. He is sitting comfortably in a chair, does not appear to be in any distress, is comfortably having lunch. VITAL SIGNS: Has a pulse of 86 and a blood pressure of 98/71. However, he appears to be well perfused with this and is comfortable. His respiratory rate was around 16 to 18 at the time of my examination, he is saturating 95%. He is on 2 liters nasal cannula. He is afebrile with a temperature of 36.7. He appears to be thin and lean, however, his calculated body mass index is in fact normal at 24.1. HEENT: Head is normocephalic and atraumatic. Pupils are equal and reactive. There is mild throat erythema noted. There is some white material around his posterior palate and uvula. I asked him to drink some liquids. This did not change. NECK: Does not show raised JVP, asymmetry, mass or lymph nodes. CHEST: Symmetrical expansion on inspection and palpation. On auscultation, breath sounds are significantly decreased. Expirations are prolonged. Breath sounds are bilaterally equal. I do not hear any added sounds. HEART: Regular. There is no murmur. ABDOMEN: Soft and nontender. EXTREMITIES: Lower extremities show no edema, no calf tenderness. SKIN: Dry, intact, but scaly. NEUROLOGIC: Moves all extremities bilaterally equally and spontaneously. There is no focal deficit identified. LABORATORY DATA: The patient has had a CTA chest performed yesterday. I reviewed both the films as well as the report. There are bilateral lower lobe infiltrates noted. These are more on the right side than the left. There may be some infiltrates in the right middle lobe and lingula as well. There are similar findings noted on the CT performed last month; however, the infiltrates appear to have increased significantly since then. There is mild mediastinal lymphadenopathy also noted. The patient's CBC, which does show leukocytosis and chemistries are in [place] and these are reviewed. Borderline sodium levels on the lower side noted, elevated BUN with normal creatinine noted. ASSESSMENT AND PLAN: 1. Pulmonary infiltrate/pneumonia. He had similar findings on the CT performed last month as well. When comparing the 2 CTs, in fact infiltrates appear to [address] [address] CONSULTATION Name: JAMES MIN JR Room: [address] IN [facility].#: [id number] Admission: 06/20/18 Attend Phys: Jason Ferreira MD Discharge: Date of : 37 Report #: [id number] have increased significantly. The patient's clinical history is consistent with initial improvement and then either recurrence or worsening of infiltrates again. The patient currently is on broad-spectrum antibiotics including vancomycin as well as Zosyn and these are being managed by the infectious disease service. I agree with this. The sputum culture is pending. Nasal swab for methicillin-resistant Staphylococcus aureus has been sent. I will go ahead and request a urine for legionella and pneumococcal antigens as well. I asked the patient to drink some liquid as mentioned above, I did not note any obvious aspiration; however, the pattern of infiltrates does raise the suspicion of aspiration regardless. Therefore, I recommend that we should perform a video swallow. A bedside swallow evaluation will not adequately evaluate this patient for aspiration. 2. Chronic obstructive pulmonary disease exacerbation. The patient's history as well as physical examination findings are consistent with chronic obstructive pulmonary disease. I in fact see at least some changes consistent with emphysema on the CT as well. Note, however, that the patient has only had limited history of smoking. It is not known to me as to what workup has been previously done. The patient follows with a associate out of [place]. In the short run, I agree with treating him with Solu-Medrol as well as nebulized bronchodilators as already ordered by Dr. Ferreira. Would defer long-term management to his associate. I would like to check an alpha-1 antitrypsin level. 3. Thrush. There is a white material in the back of his throat, which is not changing when he drinks liquids for now. I, therefore, ordered Diflucan. We will watch his liver function tests. I will reexamine tomorrow and reassess if these opacities are persisting. 4. Non-Hodgkin lymphoma. Note that he has a Port-A-Cath. Note also that he is on low-dose prednisone long-term. 5. Past medical history of prostate cancer, status post radiation. 6. Deep venous thrombosis prophylaxis. He is on Lovenox. Thanks for this consultation. <ELECTRONICALLY SIGNED> By: Chris Frey MD 06/23/18 1242 1356 [id number] Pérez MD /nt
[2018-06-23 14:07] LABS: IgA 96 mg/dL (61-437); IgG 320 mg/dL (700-1600); IgM 27 mg/dL (15-143)
--- NOTE | 2018-06-23 15:32 | NUR ---
Pt known to this CM from previous hospital stay. Pt is A&O. Resides at home with his . Independent with ADLs. Pt has a nebulizer, no other DME. No hx of HH or SNF. Pt did not qualify for home o2 during last hospital stay. Pt's goal is to return home, no needs anticipated.
[2018-06-23 15:34] VITALS: BP 129/71
--- NOTE | 2018-06-23 16:45 | 2DMMODE ---
[place] [address] 2 D/M-MODE ECHOCARDIOGRAM Name: JAMES MIN JR Room: [address] IN [facility]#: [id number] Admission: 06/20/18 Attend Phys: Jason Ferreira, Discharge: Date of : 37 Date of Service: 06/23/18 1645 Report #: [id number] THIS REPORT FOR: //name// APPROVED REPORT Study performed: 06/23/2018 11:29:23 EXAM: Comprehensive 2D, Doppler, and color-flow Echocardiogram Patient Location: In-Patient Room #: [facility] Status: routine BSA: 2.07 HR: 99 bpm BP: 95/44 mmHg Rhythm: Atrial Fibrillation Other Information Study Quality: Good Indications COPD Atrial Fibrillation Dyspnea 2D Dimensions IVSd: 9.51 (7-11mm) LVOT Diam: 19.58 (18-24mm) LVDd: 39.99 mm PWd: 8.80 (7-11mm) Ascending Ao: 34.76 (22-36mm) LVDs: 22.46 (25-40mm) Aortic Root: 34.99 mm Volumes Left Atrial Volume (Systole) LA ESV Index: 19.70 mL/m2 Aortic Valve AoV Peak Frandy.: 1.44 m/s AO Peak Gr.: 8.25 mmHg LVOT Max P.73 mmHg AO Mean Gr.: 4.48 mmHg LVOT Mean P.09 mmHg LVOT Max V: 1.56 m/s AO V2 VTI: 20.75 cm LVOT Mean V: 1.05 m/s BI (VTI): 3.42 cm2 LVOT V1 VTI: 23.59 cm Mitral Valve MV Decel. Time: 134.94 [place] [address] 2 D/M-MODE ECHOCARDIOGRAM Name: JAMES MIN JR Room: [address] IN ..#: [id number] Admission: 06/20/18 Attend Phys: Jason Ferreira, Discharge: Date of : 37 Date of Service: 06/23/18 1645 Report #: [id number] PHT: 39.13 ms MVA (PHT): 5.62 cm2 TDI Medial E' Frandy.: 0.14 m/s Lateral E' Frandy.: 0.19 m/s Pulmonary Valve PV Peak Frandy.: 0.97 m/s PV Peak Gr.: 3.80 mmHg Tricuspid Valve RAP Estimate: 5.00 mmHg TR Peak Gr.: 24.38 mmHg RVSP: 29.00 mmHg PA Pressure: 29.00 mmHg Left Ventricle The left ventricle is normal size. There is normal LV segmental wall motion. There is normal left ventricular wall thickness. Left ventricular systolic function is normal. The left ventricular ejection fraction is within the normal range. LVEF is 65%. This study is not technically sufficient to allow evaluation of the LV diastolic function due to atrial fibrillation. Right Ventricle The right ventricle is normal size. The right ventricular systolic function is normal. Atria The left atrium size is normal. Right atrium is dilated. Aortic Valve The aortic valve is normal in structure. No aortic regurgitation is present. There is no aortic valvular stenosis. Mitral Valve The mitral valve is normal in structure. There is no mitral valve regurgitation noted. No evidence of mitral valve stenosis. Tricuspid Valve The tricuspid valve is normal in structure. Trace tricuspid regurgitation. No pulmonary hypertension. Pulmonic Valve The pulmonary valve is normal in structure. There is no pulmonic [place] [address] 2 D/M-MODE ECHOCARDIOGRAM Name: JAMES MIN JR Room: [address]#: [id number] Admission: 06/20/18 Attend Phys: Jason Ferreira, Discharge: Date of : 37 Date of Service: 06/23/18 1645 Report #: [id number] Great Vessels The aortic root is normal in size. IVC is normal in size and collapses >50% with inspiration. Pericardium There is no pericardial effusion. <Conclusion> The left ventricle is normal size. There is normal left ventricular wall thickness. Left ventricular systolic function is normal. The left ventricular ejection fraction is within the normal range. LVEF is 65%. This study is not technically sufficient to allow evaluation of the LV diastolic function due to atrial fibrillation. The right ventricle is normal size. The left atrium size is normal. The aortic valve is normal in structure. The mitral valve is normal in structure. The tricuspid valve is normal in structure. IVC is normal in size and collapses >50% with inspiration. There is no pericardial effusion. There is normal LV segmental wall motion. <ELECTRONICALLY SIGNED> By: David Hernandez MD, FACC 06/23/18 1645 44 44 David Hernandez MD, FACC /INF
--- NOTE | 2018-06-23 17:38 | NUR ---
DARCIE GILLETTE SENIOR SALES CONSULTANT WITH CV NOTIFIED THAT PT. HEART RATE REMAINS BETWEEN 110-122 ON AVERAGE WITH STABLE BP. NEW ORDER RECEIVED FOR FLECANIDE LOADING DOSE. DISCUSSED WITH PT. CHANGE IN MEDICATION, VERBALIZED UNDERSTANDING AND DOSE GIVEN. PT. UP IN ROOM AD JUANCHO TODAY, TOLERATED WELL. NO COMPLAINTS OF PAIN. CONTINUES WITH CONGESTED COUGH. REMOVES OXYGEN BYSELF, CHECKED ON RA AT 93%. HOURLY ROUNDING COMPLETED THROUGH OUT THE DAY FOR PT. SAFETY.
[2018-06-23 20:00] VITALS: BP 105/69
--- NOTE | 2018-06-23 20:00 | NUR ---
RECEIVED REPORT AND ASSUMED CARE OF PT, ASSESSMENT COMPLETED. RESTING QUIETLY IN BED. O2 ON AT 2L/NC. HAVING OCC MOIST NON-PROD COUGH. TELEMETRY ON SHOWING SR. PREVIOUSLY A-FIB SO PT DID CONVERT. WILL CONT TO MONITOR AND ASSIST NEEDED.
[2018-06-24] VITALS (7 sets, daily range): BP systolic 91–135; BP diastolic 57–87
[2018-06-24 05:25] LABS: ABSOLUTE LYMPHOCYTES 2.5 thou/uL (0.8-5.3); ABSOLUTE MONOCYTES 0.4 thou/uL (0.0-1.2); ABSOLUTE NEUTROPHILS 9.6 thou/uL (1.6-8.1); HEMATOCRIT 40.5 % (42.0-52.0); HEMOGLOBIN 13.6 gm/dL (14.0-18.0); LYMPHOCYTES 20.2 %; MCH 33.2 pg (26.0-34.0); MCHC 33.7 g/dL (28.0-37.0); MCV 98.8 fL (80.0-100.0); MONOCYTES 3.3 %; NUCLEATED RBCS 0 /100WBC; PLATELET COUNT* 148 thou/uL (150-400); POLYS 76.5 %; RDW-CV 14.3 % (10.5-14.5); WBC 12.6 thou/uL (4.0-11.0)
[2018-06-24 05:36] LABS: CALCIUM 8.2 mg/dL (8.5-10.1); CREATININE 1.3 mg/dL (0.6-1.3); POTASSIUM 3.6 mmol/L (3.5-5.1)
[2018-06-24 05:48] LABS: PREALBUMIN 27.9 mg/dL (18.0-35.7)
--- NOTE | 2018-06-24 07:04 | NUR ---
SLEPT MUCH BETTER TONIGHT THEN PREVIOUS NIGHT. ABLE TO STAY IN BED WITH LEGS ELEVATED RATHER THAN DANGLING. 2+ EDEMA NOTED TO ANKLES AND FEET. CONT HAVING MOIST COUGH. TELEMETRY SHOWING SR. O2 ON AT 2L/NC. ACHIEVED HS GOALS OF REST AND SAFETY. HOURLY ROUNDING OBSERVED.
--- NOTE | 2018-06-24 09:45 | CON ---
[address] [address] CONSULTATION Name: JAMES MIN JR Room: [address] IN M.R.#: [id number] Admission: 06/20/18 Attend Phys: Jason Ferreira MD Discharge: Date of : 37 Report #: [id number] THIS REPORT FOR: //name// CC: Jason Serrano DATE OF SERVICE: 06/22/2018 DIAGNOSIS: Non-Hodgkin's lymphoma. Current treatment, ibrutinib. SUBJECTIVE: The patient is an 82-year-old male who was admitted because of shortness of breath and productive cough. Previously, he has pneumonia in May; however, he had 2 courses of antibiotics with the prednisone. He came in because of worsening of his symptoms. He admits he has a low-grade fever. Upon evaluation including CT of the chest, which showed endobronchial plugs and basilar plugs and basilar infiltrates consistent with pneumonia/aspiration, the patient is feeling a little bit better. The patient had a previous history of prostate cancer back in 2010 when he was treated with radiation therapy. In addition to that, he was diagnosed at that time with lymphoma treated with single agent Rituxan followed by maintenance Rituxan. Most recently, he has been on ibrutinib for the last 1 year. Per the patient, he has been told that his disease is under control at this point. He follows up with the [facility]. REVIEW OF SYSTEMS: All systems reviewed, was negative except the above. PAST MEDICAL HISTORY: Non-Hodgkin's lymphoma, history of prostate cancer, COPD, GERD. PAST SURGICAL HISTORY: Hernia repair, cholecystectomy, appendectomy, tonsillectomy. SOCIAL HISTORY: No smoking, no alcohol abuse, no drug abuse. ALLERGIES: ADHESIVE AND AZITHROMYCIN. MEDICATIONS: Per admission list. PHYSICAL EXAMINATION: VITAL SIGNS: Today, temperature is 36.3, pulse is 91, respirations 22, blood pressure is 126/75, SpO2 was 95% on room air. GENERAL: The patient was sitting in chair, was not in acute distress. LUNGS: Decreased breathing sounds bilaterally. No rales or wheezing. ABDOMEN: Soft, nontender, nondistended. Bowel sounds positive. EXTREMITIES: No edema, no cyanosis, [place] [address] CONSULTATION Name: JAMES MIN JR Room: [address]#: [id number] Admission: 06/20/18 Attend Phys: Jason Ferreira MD Discharge: Date of : 37 Report #: [id number] LABORATORY DATA: Today, WBC 16.2, trending down from 06/20/2018, 25.7. Hemoglobin 13.1, platelets 157. Lactic acid 1.2. C-reactive protein 109.4. IMAGING: As mentioned above. ASSESSMENT AND PLAN: 1. An 82-year-old male who was diagnosed with a non-Hodgkin's lymphoma, previously treated with Rituxan as a single agent followed by maintenance and currently he is on ibrutinib. 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 In terms of his current management, I agree with supportive antibiotics. I would like to obtain immunoglobulins since this is the second episode of infection. 2. Recommend to hold his ibrutinib while he is on active pneumonia treatment. All questions have been answered. Followup after that will be with the primary oncologist. <ELECTRONICALLY SIGNED> By: Miracle Salcido MD 06/24/18 0945 0934 [id number] Salcido MD /nt
--- NOTE | 2018-06-24 10:31 | NUR ---
ASSUMED CARE OF PT AT 0730. PT RESTING AT EDGE OF BED WAITING FOR BREAKFAST. PT A&0X4, DENIES ANY PAIN OR SHORTNESS OF BREATH AT THIS TIME. PT TRACING SR ON THE STRING TOP SEALER- ON PO CARDIZEM AND FLECAINIDE. EDEMA NOTED TO BILATERAL LE'S. PT ON 1L NC SAT 93%. PT UP AD JUANCHO IN ROOM. PT GOAL FOR TODAY IS MONITOR HEART RATE AND RHYTHM, IV ABX AND INCREASE ACTIVITY. AM ASSESSMENT CHARTED. MEDICATIONS PER OCT. PT REPOSITIONS SELF. HOURLY ROUNDING OBSERVED. BED IN LOW POSITION. CALL LIGHT WITHIN REACH. WILL CONTINUE PLAN OF CARE.
--- NOTE | 2018-06-24 11:10 | EKG ---
[place] [address] ELECTROCARDIOGRAM REPORT Name: CANDIDOSYEDJAMES JR Room: [address] ADM IN M.R.#: [id number] Admission: 06/20/18 Attend Phys: Jason Ferreira MD Discharge: Date of : 37 Report #: [id number] THIS REPORT FOR: //name// [facility] Test Date: 2018-06-22 Test Time: 16:05:59 Pat Name: JAMES MIN Department: Room: [facility] Gender: M Inventory Specialist: BARBARA VALIENTE : 1935 Requested By: Jason Ferreira Order Number: [id number] Reading MD: Mauri Baxter Measurements Intervals [place] Rate: 130 P: AR: QRS: 85 QRSD: 107 T: 27 QT: 312 QTc: 459 Interpretive Statements Atrial fibrillation Paired ventricular premature complexes Borderline right axis deviation Minimal ST depression, inferior leads Compared to ECG 06/20/2018 10:01:10 Ventricular premature complex(es) now present ST (T wave) deviation now present Sinus tachycardia no longer present Atrial abnormality no longer present Electronically Signed On 06-24-2018 11:10:18 STUDENT RECORDS COORDINATOR by Mauri Baxter [email or web address] <ELECTRONICALLY SIGNED> By: Mauri Baxter MD, FACC 06/24/18 1110 1605 1605 Mauri Baxter MD, FACC /EPI
--- NOTE | 2018-06-24 17:30 | NUR ---
NO ACUTE CHANGES THROUGHOUT SHIFT. REFER TO CHARTING. PT UP TO CHAIR FOR MEALS, TOLERATED WELL- NOTED SHORTNESS OF BREATH WITH EXERTION. ONE TIME ORDER OF 40 MG IVP LASIX GIVEN PER DR CELIS. BNP ORDERED- RESULTS BACK AT 2400. PT SLOWLY PROGRESSING TOWARDS GOALS. CONTINUES TO TRACE SR WITH OCCASIONAL PAC'S, FIRST DEGREE ON THE MEDICAL DEVICE ENGINEER. ON 1L NC SAT 94%. PT UP AD JUANCHO IN ROOM. PT AT BEDSIDE THROUGHOUT MORNING AND AFTERNOON- UPDATED ON CURRENT PLAN OF CARE. MEDICATIONS PER OCT. PT REPOSITIONS SELF. HOURLY ROUNDING OBSERVED. BED IN LOW POSITION. CALL LIGHT WITHIN REACH. WILL CONTINUE PLAN OF CARE.
[2018-06-25 01:09] VITALS: BP 95/54
[2018-06-25 04:00] VITALS: BP 99/47
--- NOTE | 2018-06-25 04:48 | NUR ---
ASSUSMED CARE OF PT A 0930. ASSESSMENT COMPLETED CHARTED. VSS. DID NOT REST WELL DUE TO UNPRODUCTIVE COUGH. PRN TESSALON PEARLS GIVEN WITH GOOD RESULT. CLARRIFIED WITH PHARMACY ON ABX ADMINISTRATION. REMAINED SR ON MONOTOR. SAFETY PRECAUTIONS IN PLACE. CALL LIGHT WITHIN REACH. HOURLY COMPLETED. NURSING WILL CONTINUE TO MONITOR.
[2018-06-25 09:37] VITALS: BP 84/58
[2018-06-25 12:00] VITALS: BP 100/61
[2018-06-25 13:08] LABS: HEMATOCRIT 46.5 % (42.0-52.0); HEMOGLOBIN 15.3 gm/dL (14.0-18.0); MCH 32.6 pg (26.0-34.0); MCHC 32.9 g/dL (28.0-37.0); MCV 99.1 fL (80.0-100.0); MPV 8.3 fl. (7.2-11.1); NUCLEATED RBCS 0 /100WBC; PLATELET COUNT* 187 thou/uL (150-400); RBC 4.69 mil/uL (4.50-6.00); RDW-CV 14.5 % (10.5-14.5); WBC 23.4 thou/uL (4.0-11.0)
[2018-06-25 13:23] LABS: CALCIUM 8.9 mg/dL (8.5-10.1); CREATININE 1.4 mg/dL (0.6-1.3); POTASSIUM 3.3 mmol/L (3.5-5.1)
--- NOTE | 2018-06-25 13:27 | NUR ---
PT VSS THIS SHIFT. PT SR ON THE MONITOR. PT TOLERATING BEING UP AD JUANCHO AND 1L PER NC AT THIS TIME. PT TOLERATING IV ABX WITH NO CONCERNS AT THIS TIME. PT COUGH MORE PRODUCTIVE AT THIS TIME. PT DOES HAVE 3+ PITTING EDEMA ON THE LLE AND 2+ EDEMA IN RLE. PT TAKING TESSALON PEARLS FOR COUGH. WILL UPDATE ONCOMING RN TO PT STATUS
[2018-06-25 13:33] LABS: ABSOLUTE LYMPHOCYTES 3.5 thou/uL (0.8-5.3); ABSOLUTE MONOCYTES 0.5 thou/uL (0.0-1.2); ABSOLUTE NEUTROPHILS 19.4 thou/uL (1.6-8.1); METAMYELOCYTES 2 %; PLATELET ESTIMATE ADEQUATE
--- NOTE | 2018-06-25 13:48 | NUR ---
DR LOPEZ RETURNED CALL REGARDING PT GETTING IVIG. HE STATED SINCE THE MEDICATION WOULD NOT BE READY UNTIL TOMORROW AFTERNOON AND THE PT IS STABLE HE CAN JUST FOLLOW UP WITH HIS ONCOLOGIST AT [facility]. WILL NOTIFY DR CELIS
--- NOTE | 2018-06-25 15:28 | NUR ---
RECIEVED REPORT FROM ANGELITA AND ASSUMED CARE OF PT @ 1400.PT IS A/O X4,VSS.ASSESSMENT REVIEWED AND THIS NURSE AGREES WITH PREVIOUS NURSE.PT LEFT RESTING AT EDGE OF BED WITH CALL LIGHT WITHIN REACH.WILL CONTINUE TO MONITOR.
[2018-06-25 15:38] VITALS: BP 117/71
[2018-06-25 20:00] VITALS: BP 106/66
[2018-06-26] VITALS: BP 122/68
--- NOTE | 2018-06-26 00:23 | NUR ---
ASSUMED PT CARE AT 1930. ASSESSMENT COMPLETED CHARTED. ABLE TO MAKE NEEDS KNOWN. UP AD JUANCHO IN ROOM, NO C/O PAIN, DISCOMFORT, OR SOA. CALL LIGHT WITHIN REACH. RESTING IN BED COMFORTABLY. WILL CONTINUE TO MONITOR.
[2018-06-26 04:00] VITALS: BP 83/47
[2018-06-26 05:06] LABS: ABSOLUTE LYMPHOCYTES 2.6 thou/uL (0.8-5.3); ABSOLUTE MONOCYTES 0.9 thou/uL (0.0-1.2); ABSOLUTE NEUTROPHILS 8.5 thou/uL (1.6-8.1); BASOPHILS 0.2 %; HEMOGLOBIN 13.8 gm/dL (14.0-18.0); LYMPHOCYTES 21.8 %; MCH 32.6 pg (26.0-34.0); MCHC 32.9 g/dL (28.0-37.0); MCV 99.2 fL (80.0-100.0); MONOCYTES 7.4 %; MPV 8.5 fl. (7.2-11.1); NUCLEATED RBCS 0 /100WBC; PLATELET COUNT* 130 thou/uL (150-400); POLYS 70.6 %; RBC 4.24 mil/uL (4.50-6.00); RDW-CV 14.7 % (10.5-14.5); WBC 12.1 thou/uL (4.0-11.0)
[2018-06-26 05:39] LABS: ALBUMIN 2.5 g/dL (3.4-5.0); CALCIUM 8.2 mg/dL (8.5-10.1); CREATININE 1.2 mg/dL (0.6-1.3); TOTAL BILIRUBIN 0.4 mg/dL (<0.1-1.0); TOTAL PROTEIN 4.6 g/dL (6.4-8.2)
[2018-06-26 08:15] VITALS: BP 111/68
[2018-06-26 09:21] VITALS: BP 111/68
[2018-06-26] MEDS ORDERED: FLECAINIDE ACET50 M1 PO (13:35)
[2018-06-26] MEDS ORDERED: ELIQUIS5 MG PO (13:36)
[2018-06-26] MEDS ORDERED: CEFUROXIME500 MG PO (15:44)
--- NOTE | 2018-06-26 16:06 | NUR ---
RECEIVED REPORT FROM EDWIGE AND ASSUMED CARE OF PT ON 729. VSS. REGIONAL MERCHANDISING MANAGER TRACING NORMAL SINUS RHYTHM. PT ALERT AND ORIENTED X 3. PT DENIES ANY COMPLAINTS OF PAIN OR DISCOMFORT. ASSESSMENT CHARTED. PT UP AD JUANCHO IN ROOM. POTASSIUM REPLACED PER PROTOCOL. IV PATIENT AND SALINE LOCKED. PT IS CALM AND COOPERATIVE. HOURLY ROUNDING COMPLETE FOR PT SAFETY. CALL LIGHT WITHIN REACH. PT OKAY FOR DISCHARGE. PAPER WORK COMPLETED AND GIVEN TO PT. SCRIPTS GIVEN WITH EDUCATION. IV REMOVED. REGIONAL MERCHANDISING MANAGER REMOVED AND RETURNED TO NURSES STATION. ALL PERSONAL BELONGING PACK AND TAKEN WITH PT. PT TRANSPORTED OFF UNIT BY NURSING STAFF IN WHEELCHAIR AND TAKEN OUT TO PERSONAL VEHICLE.
== END 2018-06-26 16:15 | disposition home or self-care (01) | DRG 871 ==
LOC: M.ERS 09:53 → M.2W 12:10 → M.TBA-ER 12:10 → M.3W 12:10 → M.2W 06-22 16:43
PROVIDERS: Emergency Medicine Emergency Medical Services; Internal Medicine; Internal Medicine Infectious Disease; ADMIT Internal Medicine
DX: A41.9 Sepsis, unspecified organism (principal); J96.01 Acute respiratory failure with hypoxia; J18.9 Pneumonia, unspecified organism; I50.33 Acute on chronic diastolic (congestive) heart failure; J44.0 Chronic obstructive pulmonary disease with (acute) lower respiratory infection; J44.1 Chronic obstructive pulmonary disease with (acute) exacerbation; E87.1 Hypo-osmolality and hyponatremia; B37.9 Candidiasis, unspecified; I48.91 Unspecified atrial fibrillation; K21.9 Gastro-esophageal reflux disease without esophagitis; Z85.46 Personal history of malignant neoplasm of prostate; Z85.72 Personal history of non-Hodgkin lymphomas; Z92.3 Personal history of irradiation; Z90.49 Acquired absence of other specified parts of digestive tract; Z79.899 Other long term (current) drug therapy; Z88.1 Allergy status to other antibiotic agents; Z91.048 Other nonmedicinal substance allergy status

== ENCOUNTER 2018-07-14 15:26 | Inpatient (IN) | payer OTHER ==
[~2018-07-14] VITALS: Ht 185.4 cm; Wt 81.2 kg
--- NOTE | ~2018-07-14 | EKG ---
[place] [address] ELECTROCARDIOGRAM REPORT Name: JAMES MIN JR Room: [address] ADM IN M.R.#: [id number] Admission: 07/14/18 Attend Phys: James Fabian MD Discharge: Date of : 39 Report #: [id number] THIS REPORT FOR: //name// [facility] ED Test Date: 2018-07-14 Test Time: 16:20:52 Pat Name: JAMES MIN Department: Room: [address] Gender: M Unit Control Worker: YOBANI : 1935 Requested By: Betty Jack Order Number: [id number] Reading MD: Measurements Intervals [place] Rate: 96 P: 122 ME: 215 QRS: 107 QRSD: 103 T: 60 QT: 348 QTc: 440 Interpretive Statements Right and left arm electrode reversal, interpretation assumes no reversal Sinus rhythm Prolonged ME interval ST elevation suggests acute pericarditis No previous ECG available for comparison [email or web address] By: 1620 1620 Epiphany EpiphMD jake /EPI
--- NOTE | ~2018-07-14 | EKG ---
[place] [address] ELECTROCARDIOGRAM REPORT Name: JAMES MIN JR Room: [address] ADM IN M.R.#: [id number] Admission: 07/14/18 Attend Phys: James Fabian MD Discharge: Date of : 39 Report #: [id number] THIS REPORT FOR: //name// [facility] ED Test Date: 2018-07-14 Test Time: 16:19:34 Pat Name: JAMES MIN Department: Room: [facility] Gender: M Feed Mill Manager: YOBANI : 1935 Requested By: Betty Jack Order Number: [id number] MD: Measurements Intervals [place] Rate: 96 P: 100 LA: 195 QRS: 101 QRSD: 101 T: 92 QT: 353 QTc: 447 Interpretive Statements Right and left arm electrode reversal, interpretation assumes no reversal Sinus rhythm Consider left atrial enlargement Right axis deviation ST elevation suggests acute pericarditis Baseline wander in lead(s) V6 No previous ECG available for comparison [email or web address] By: 1619 1619 Epiphany Epiphany, /EPI
[~2018-07-14 15:26] MED LIST changes: +AMITRIPTYLINE H25 M2 PO; +ANORO ELLIPTA1 EACH INH; +BEVESPI AEROS10.7 GM INH; +CEFUROXIME500 MG PO; +DECADRON0.5 MG/5 M PO; +ELIQUIS5 MG PO; +FLECAINIDE ACET50 M1 PO; +IMBRUVICA140 MG PO; +NIZORAL120 ML TOP; +PEPCID20 MG PO; +PERIDEX 0.12%473 M1 SSP; +PREDNISOLONE ACE5 ML OPHTHALMIC; +STIOLTO RESPIMAT4 GM INH; +THERAGRAN STRE1 EACH PO
[2018-07-14 15:33] VITALS: BP 131/69
[2018-07-14 16:17] LABS: EOSINOPHILS 0.1 %; WBC 5.6 thou/uL (4.0-11.0)
[2018-07-14 16:22] LABS: ANION GAP 9 mmol/L (7-16); BUN 26 mg/dL (7-18); CALCIUM 8.5 mg/dL (8.5-10.1); CHLORIDE 97 mmol/L (98-107); CO2 27 mmol/L (21-32); CREATININE 1.2 mg/dL (0.6-1.3); GLUCOSE 100 mg/dL (70-99); POTASSIUM 3.9 mmol/L (3.5-5.1); SODIUM 133 mmol/L (136-145)
[2018-07-14 16:23] LABS: ABSOLUTE LYMPHOCYTES 1.8 thou/uL (0.8-5.3); ABSOLUTE MONOCYTES 0.5 thou/uL (0.0-1.2); ABSOLUTE NEUTROPHILS 3.3 thou/uL (1.6-8.1); BASOPHILS 0.7 %; HEMATOCRIT 40.8 % (42.0-52.0); LYMPHOCYTES 31.5 %; MCH 33.1 pg (26.0-34.0); MCHC 34.3 g/dL (28.0-37.0); MCV 96.4 fL (80.0-100.0); MONOCYTES 9.4 %; MPV 7.9 fl. (7.2-11.1); NUCLEATED RBCS 0 /100WBC; PLATELET COUNT* 94 thou/uL (150-400); POLYS 58.3 %; RBC 4.23 mil/uL (4.50-6.00); RDW-CV 15.5 % (10.5-14.5)
[2018-07-14 16:29] LABS: ALBUMIN 3.2 g/dL (3.4-5.0); ALKALINE PHOSPHATASE 52 U/L (46-116); SGOT 28 U/L (15-37); SGPT 51 U/L (30-65); TOTAL BILIRUBIN 0.8 mg/dL (<0.1-1.0); TOTAL PROTEIN 6.3 g/dL (6.4-8.2); TROPONIN-I LEVEL <0.06 ng/mL (<0.06)
[2018-07-14 17:03] LABS: BE -2.4 mmol/L (-2 to +3); HCO3 20.4 mmol/L (22.0-26.0); PO2 88.5 mmHg (75.0-100.0)
[2018-07-14 17:54] LABS: APTT 25.7 Seconds (25.0-31.3); INR 1.1; PROTIME 10.9 Seconds (9.20-11.50)
[2018-07-14 19:05] VITALS: BP 107/59
[2018-07-14 19:30] VITALS: BP 141/76
[2018-07-15 00:02] VITALS: BP 92/58
[2018-07-15 04:00] VITALS: BP 102/61
[2018-07-15 08:07] VITALS: BP 95/57
[2018-07-15 11:23] VITALS: BP 115/93
[2018-07-15 15:24] VITALS: BP 114/70
--- NOTE | 2018-07-15 16:06 | CON ---
[address] [address] CONSULTATION Name: JAMES MIN JR Room: [address] IN .R.#: [id number] Admission: 07/14/18 Attend Phys: James Fabian MD Discharge: Date of : 37 Report #: [id number] THIS REPORT FOR: //name// CC: ISHAN DELANEY DATE OF SERVICE: 07/15/2018 ATTENDING PHYSICIAN: James Fabian MD. The patient is located in room 228. INDICATION FOR CONSULTATION: COPD, recurrent bronchitis and early pneumonia. HISTORY OF PRESENT ILLNESS: The patient is an 83-year-old male, very remote smoker, who has been steroid dependent, either for his lymphoma and/or for COPD for the past several months. The patient had multiple medical problems, and he is just discharged home from the hospital about 3 weeks ago. For the past 2 weeks, he has had increasing cough, shortness of breath and yellow-green sputum production. He denies fever, chills or sweats, but he states he felt more short of breath. He was placed on a steroid taper at home. I am not sure whether he got off all prednisone or he is back down to 10 mg a day after going with 40 mg a day for 4 days, etc. He has also been on antibiotics, azithromycin and oral cephalosporin. His previous cultures and workup are all negative that included MRSA strep and legionella. Not able to obtain any sputum, though. The patient tried albuterol nebulizer treatments in the Emergency Room Department. He states he takes 3 nebulizer treatments at home. He is not on any supplemental oxygen at home. His exercise tolerance at home is just fair. He did start some IVIG treatments. The last dose on 07/05, and he has had occasional pleuritic chest pain with his sputum production. It does not radiate. He was somewhat hypoxic in the Emergency Room, was on 2 liters now. PAST MEDICAL HISTORY: History of moderately severe to severe COPD, either steroid dependent or nearly steroid dependent. He has not been oxygen dependent, although again may be becoming somewhat close. He has had recurrent exacerbations over the past 2-3 months. Also, on chronic lymphocytic leukemia, non-Hodgkin lymphoma, was on previous chemotherapy and Rituxan. He tells this was 8-10 years ago under the direction of Dr. Jonathan mares at [facility]. Currently, he is on ibrutinib or Imbruvica 140 mg daily, I think that is an immunosuppressive for his CLL and non-Hodgkin' lymphoma. He states he was at a higher dose of 400 mg a day and now he has cut down to 140 [place] [address] CONSULTATION Name: JAMES MIN JR Room: [address] IN [facility]#: [id number] Admission: 07/14/18 Attend Phys: James Fabian MD Discharge: Date of : 37 Report #: [id number] ALLERGIES: ADHESIVE TAPE, QUESTIONABLY TO AZITHROMYCIN, WHICH GIVES HIM SOME NAUSEA. OTHER OUTPATIENT MEDICATIONS: Included Bevespi inhaler 2 puffs twice a day and albuterol nebulizer treatments 2-4 times a day, followed by Bevespi. He is not on Anoro at least at this time. Previously was on Stiolto, he is not on that either. Also on apixaban 5 mg b.i.d. for I believe was atrial fibrillation, possibly remote history of DVT and also on prednisone 10 mg daily, again either for his chronic lymphocytic leukemia or for his COPD. He takes Tessalon Perles p.r.n. and also on flecainide 50 mg b.i.d. Imbruvica of 140 mg is on hold at this time. OTHER PAST MEDICAL HISTORY: Prostate cancer 10 years ago and no evidence of disease recurrence followed by radiation therapy. He has had a history of CLL, non-Hodgkin lymphoma, made by biopsy, I am not sure what lymph nodes were biopsied. This has been for the last 5-8 years and again under the therapy of [facility]. He had gastroesophageal reflux disease, moderately severe COPD, has also had hypogammaglobulinemia and on IVIG for the last couple of months. Also has chronic diastolic heart failure, fluid overload. PAST SURGICAL HISTORY: Includes hydrocele repair, cholecystectomy and hernia repair. Also had a tonsillectomy. FAMILY HISTORY: Negative for premature cardiopulmonary disease. No prior family history of lymphoma. 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 He was not cutting it, he was just holding the roles. He had about a 5-10 pack year history of smoking when he was young, he quit in the 1960s. Denies any alcohol or illicit drug use noted. REVIEW OF SYSTEMS: A 14-point review of systems reviewed and negative except for pertinent positives noted in HPI. PHYSICAL EXAMINATION: GENERAL: Pleasant 83-year-old male, in mild distress. He is on a couple of liters of oxygen and can talk to me in full sentences. VITAL SIGNS: Currently, his blood pressure is 115/90, on no pressors. Heart rate 88, respirations 16, oxygen saturation on 3 liters is 95%. He is 6 feet 1 inch tall and weight is 79 kilograms or 176 pounds, his BMI is 23. HEENT: Nares and pharynx are clear. Mucous membranes are moist. There is no thrush noted in his mouth. NECK: Supple, without nodes. No increased jugular venous pressure. CHEST: Reveals markedly diminished breath sounds with bilateral rhonchi and [facility] [address] [place] [address] CONSULTATION Name: JAMES MIN JR Room: [address]#: [id number] Admission: 07/14/18 Attend Phys: James Fabian MD Discharge: Date of : 37 Report #: [id number] expiratory wheeze, mostly on the right lung, a little more accentuated on the right lung than it was on the left lung. CARDIOVASCULAR: Regular rate and rhythm without murmur, gallop or rub. Heart rate 90, diminished heart tones noted. ABDOMEN: Soft, without hepatosplenomegaly. EXTREMITIES: Without calf tenderness. No cyanosis, clubbing or edema. NEUROLOGIC: Grossly intact. He moves all fours to commands, and he has intact exam, nonfocal. SKIN: Dry and intact. LABORATORY DATA: From yesterday 07/14/2018 shows hemoglobin 14, white count 5600, normal differential, platelets little low at 94,000. He has 58 % segs, 31% lymphocytes, no increase in eos is noted. Yesterday, his sodium was 133, potassium 3.9, chloride 97, carbon dioxide is 27, BUN is 26 and creatinine is 1.2, glucose was 100. Lactic acid was 1.7 and albumin is 3.2. TSH is 1.8, which is normal. Free T4 is normal at 0.89. ABGs on 2 liters showed a pO2 of 88, pH 7.45, pCO2 is 30, bicarbonate is 21 and sats 90%. Chest x-ray portable upright shows a Port-A-Cath in place, COPD, hyperinflation, no definitive infiltrates, may have a right middle lobe or right peribasilar infiltrate or atelectasis noted. We will see if we can get him to start doing some spirometry. No PFTs on this patient. IMPRESSION: 1. Chronic obstructive pulmonary disease, moderately severe, steroid dependent, could become oxygen dependent with recurrent exacerbations. 2. Immune suppressed state, multifactorial. 3. IVIG therapy. 4. Chronic ibrutinib therapy for non-Hodgkin lymphoma, chronic lymphocytic leukemia, on hold at this time. 5. Prior history of supraventricular tachycardia, was on anticoagulants for that. PLAN: Continue workup of sinus drainage and esophageal reflux as exacerbating factors for her COPD. Not an impressive infiltrate, but certainly the patient gets short of breath as an outpatient. I think we will have to do the prednisone taper at home 40 mg a day for 4 days, 30 mg a day for 4 days, 20 mg a day for 4 days, 10 mg a day for 4 days and then, maybe, consider going on prednisone 10 mg every other day for 3-4 weeks. If he needs to be on outpatient immunosuppressive therapy, then maybe, 1 regular Bactrim at 200 mg a day would be appropriate or doxycycline at 100 mg a day, again for the next 3-6 months may be advantageous and keep the patient out of the hospital. I think the benefits would outweigh the risks. The patient will need to take a probiotic daily, and then, we will have to defer to Dr. Cain if he needs to go back on his monoclonal antibody therapy. If he continues to have persistent problems and/or infiltrates progress, then outpatient fiberoptic bronchoscopy, off any anticoagulants for 5 days and doing immune suppressed workup [place] [address] CONSULTATION Name: JAMES MIN Room: [address] IN .#: [id number] Admission: 07/14/18 Attend Phys: James Fabian MD Discharge: Date of : 37 Report #: [id number] and S, [employer] and fungus and possibly checking HIV status and for pneumocystis may be another consideration. The patient is a DNR/DNI at this time. Prognosis somewhat guarded and obviously will need some PFTs as an outpatient. I will defer that to his manager forms at [facility]. We may need to do walk and exercise, see if he qualifies for oxygen at home at this time. <ELECTRONICALLY SIGNED> By: Juancarlos Dorado MD 07/15/18 1606 [id number] [id number] Dorado MD /nt
[2018-07-15] MEDS ORDERED: SPIRONOLACTONE25 M1 PO (17:03)
[2018-07-15 19:50] VITALS: BP 105/66
[2018-07-16] VITALS: BP 110/68
[2018-07-16 04:00] VITALS: BP 120/75
[2018-07-16 07:55] VITALS: BP 116/66
[2018-07-16 12:00] VITALS: BP 109/60
[2018-07-16 16:00] VITALS: BP 117/74
[2018-07-16 20:15] VITALS: BP 119/65
[2018-07-17] VITALS: BP 103/61
[2018-07-17 04:00] VITALS: BP 91/44
[2018-07-17 08:10] VITALS: BP 115/71
[2018-07-17 11:20] VITALS: BP 114/62
[2018-07-17 13:49] VITALS: BP 114/62
== END 2018-07-17 15:50 | disposition home health service (06) | DRG 177 ==
LOC: M.ERS 15:26 → M.TBA-ER 17:35 → M.2W 17:35
PROVIDERS: Personal Emergency Response Attendant; ADMIT Internal Medicine
DX: J15.6 Pneumonia due to other Gram-negative bacteria (principal); J96.21 Acute and chronic respiratory failure with hypoxia; I50.33 Acute on chronic diastolic (congestive) heart failure; J44.1 Chronic obstructive pulmonary disease with (acute) exacerbation; D80.1 Nonfamilial hypogammaglobulinemia; C91.10 Chronic lymphocytic leukemia of B-cell type not having achieved remission; C85.90 Non-Hodgkin lymphoma, unspecified, unspecified site; J44.0 Chronic obstructive pulmonary disease with (acute) lower respiratory infection; K21.9 Gastro-esophageal reflux disease without esophagitis; Z85.46 Personal history of malignant neoplasm of prostate; Z90.49 Acquired absence of other specified parts of digestive tract; Z88.0 Allergy status to penicillin; Z92.21 Personal history of antineoplastic chemotherapy; Z79.52 Long term (current) use of systemic steroids; Z28.21 Immunization not carried out because of patient refusal

== ENCOUNTER 2018-07-28 13:25 | Inpatient (IN) | payer OTHER ==
[~2018-07-28] VITALS: Ht 185.4 cm; Wt 78.8 kg
[~2018-07-28 13:25] MED LIST changes: +SPIRONOLACTONE25 M1 PO
[2018-07-28 13:29] VITALS: BP 128/77
[2018-07-28 14:02] LABS: ABSOLUTE BASOPHILS 0.1 thou/uL (0.0-0.2); ABSOLUTE LYMPHOCYTES 3.5 thou/uL (0.8-5.3); ABSOLUTE MONOCYTES 0.7 thou/uL (0.0-1.2); ABSOLUTE NEUTROPHILS 7.6 thou/uL (1.6-8.1); BASOPHILS 0.5 %; EOSINOPHILS 0.2 %; HEMATOCRIT 41.8 % (42.0-52.0); HEMOGLOBIN 14.1 gm/dL (14.0-18.0); LYMPHOCYTES 29.6 %; MCH 32.9 pg (26.0-34.0); MCHC 33.6 g/dL (28.0-37.0); MCV 97.9 fL (80.0-100.0); MONOCYTES 5.8 %; MPV 7.1 fl. (7.2-11.1); NUCLEATED RBCS 0 /100WBC; PLATELET COUNT* 140 thou/uL (150-400); POLYS 63.9 %; RBC 4.27 mil/uL (4.50-6.00); RDW-CV 16.1 % (10.5-14.5); WBC 11.9 thou/uL (4.0-11.0)
[2018-07-28 14:10] LABS: APTT 26.7 Seconds (25.0-31.3); INR 1.1
[2018-07-28 14:27] LABS: ANION GAP 5 mmol/L (7-16); BUN 26 mg/dL (7-18); CALCIUM 8.2 mg/dL (8.5-10.1); CHLORIDE 94 mmol/L (98-107); CO2 32 mmol/L (21-32); CREATININE 1.1 mg/dL (0.6-1.3); GLUCOSE 85 mg/dL (70-99); POTASSIUM 3.8 mmol/L (3.5-5.1); SODIUM 131 mmol/L (136-145)
[2018-07-28 14:36] LABS: ALKALINE PHOSPHATASE 57 U/L (46-116); LIPASE 408 U/L (73-393); SGOT 24 U/L (15-37); SGPT 34 U/L (30-65); TOTAL BILIRUBIN 0.7 mg/dL (<0.1-1.0); TROPONIN-I LEVEL <0.06 ng/mL (<0.06)
[2018-07-28 15:07] LABS: NT-PRO BRAIN NAT PEPTIDE 111 pg/mL (<300)
--- NOTE | 2018-07-28 16:24 | EKG ---
[place] [address] ELECTROCARDIOGRAM REPORT Name: JAMES MIN JR Room: [place] [address] ADM IN M.R.#: [id number] Admission: 07/28/18 Attend Phys: James Fabian MD Discharge: Date of : 37 Report #: [id number] THIS REPORT FOR: //name// [facility] ED Test Date: 2018-07-28 Test Time: 13:37:45 Pat Name: JAMES MIN Department: Room: [facility] Gender: M Quality Compliance Manager: Anne KEANE : 1935 Requested By: Kevin Rubio Order Number: [id number] MD: Mauri Baxter Measurements Intervals [place] Rate: 94 P: 110 UT: 201 QRS: 97 QRSD: 99 T: 59 QT: 340 QTc: 426 Interpretive Statements Right and left arm electrode reversal, interpretation assumes no reversal Sinus rhythm Right axis deviation ST elevation, consider inferior injury Compared to ECG 07/14/2018 16:20:52 Right-axis deviation now present ST (T wave) deviation now present Myocardial infarct finding now present Electronically Signed On 07-28-2018 16:23:48 COMPENSATOR WORKER by Mauri Baxter [email or web address] <ELECTRONICALLY SIGNED> By: Mauri Baxter MD, FACC 07/28/18 1623 1337 1337 Mauri Baxter MD, FAC /EPI
--- NOTE | 2018-07-28 17:38 | NUR ---
PT PROVIDED DINNER TRAY
[2018-07-28 20:50] VITALS: BP 131/74
[2018-07-28 21:00] VITALS: BP 109/71
--- NOTE | 2018-07-28 21:00 | NUR ---
PT ADMITTED TO FLOOR PER CART ACCOMPANIED BY ER STAFF WITH BELONGINGS. ORIENTED TO ROOM AND CALL LITE, HISTORY OBTAINED AND ASSESSMENT PERFORMED, SEE ADMIT NOTES. PT DENIES PAIN AT PRESENT. SOB WITH EXERTION AND TALKING. O2 3L NC SAT 97%. TELE MONITOR PLACED ON PT. LUNGS DIM, WHEEZES, COARSENESS. AOX4. SCDS PLACED ON PT. CALL LITE IN EASY REACH, BED ALARM ON FOR SAFETY. WILL CONTINUE TO MONITOR.
[2018-07-29] VITALS (7 sets, daily range): BP systolic 103–120; BP diastolic 60–71
--- NOTE | 2018-07-29 05:32 | NUR ---
PT SLEPT WELL AFTER ADMIT. RT TX GIVEN ORDERED. USING URINAL AT BEDSIDE. SCDS ON. TELE SR. O2 3L NC. RAC SL, SOLUMEDROL GIVEN ORDERED. OCC CONGESTED COUGH HEARD. NO LABS THIS MORNING. PULMONARY TO CONSULT. REMAINS GONZALEZ, WITH CONVERSATION. ABL TO USE CISCO LITE AND MAKE NEEDS KNOWN.
--- NOTE | 2018-07-29 16:12 | NUR ---
PATIENT UP TO CHAIR THIS AM AND AFTERNOON. IV SL, STEROIDS CONT. [address] PRN XANAX GIVEN PER OCT ORDERS, PATIENT STATED HE FELT RELAXED AFTER TAKING. ONE TIME IV DOSE LASIX GIVEN PER OCT ORDERS. HERE AT BEDSIDE THIS AFTERNOON, SUPPORTIVE. WASTEWATER TREATMENT ENGINEER REMAINS IN PLACE. NO COMPLAINTS OF PAIN.
--- NOTE | 2018-07-29 17:22 | NUR ---
SW met with pt and pt to complete initial assessment, introduce self, and SW role. Pt alert, oriented, pleasant. Pt lives with pt . Pt hx with [facility] HH recently and only accepted the HH RN. SW noted Palliative Care consult; SW to follow to arrange informational visit if pt/pt agreeable. Pt and pt hopeful that pt would qualify for oxygen at this visit. SW to continue to follow to assist with safe dc planning.
[2018-07-30 03:59] LABS: HEMATOCRIT 39.2 % (42.0-52.0); HEMOGLOBIN 13.3 gm/dL (14.0-18.0); MCHC 33.9 g/dL (28.0-37.0); MCV 97.5 fL (80.0-100.0); MPV 7.1 fl. (7.2-11.1); RBC 4.02 mil/uL (4.50-6.00); RDW-CV 15.8 % (10.5-14.5); WBC 11.7 thou/uL (4.0-11.0)
[2018-07-30 04:00] VITALS: BP 157/91
[2018-07-30 04:05] LABS: CALCIUM 8.6 mg/dL (8.5-10.1); CREATININE 1.2 mg/dL (0.6-1.3); MAGNESIUM 2.2 mg/dL (1.8-2.4); POTASSIUM 4.3 mmol/L (3.5-5.1)
--- NOTE | 2018-07-30 04:57 | NUR ---
ASSUMED CARE OF PT AT 1900 PT ALERT AND ORIENTED X4. VS AND ASSESSMNET AT PTS BASELINE. PT RUNNING NSR ON THE MONITOR. PT VOICED NO COMPLAINTS AND SLEPT THROUGH THE NIGHT. WILL CONTINUE PLAN OF CARE.
[2018-07-30 07:25] VITALS: BP 120/67
[2018-07-30 12:04] VITALS: BP 129/68
[2018-07-30 16:00] VITALS: BP 117/72
--- NOTE | 2018-07-30 16:35 | CON ---
[address] [address] CONSULTATION Name: JAMES MIN JR Room: [address] IN M.R.#: [id number] Admission: 07/28/18 Attend Phys: James Fabain MD Discharge: Date of : 37 Report #: [id number] THIS REPORT FOR: //name// CC: Osiel Barrera MD DATE OF SERVICE: 07/29/2018 ATTENDING PHYSICIAN: James Fabian MD. LOCATION: The patient is located in room 316 at [facility]. INDICATION FOR CONSULTATION: COPD, recurrent bronchitis and dyspnea. CLINICAL SUMMARY: The patient is an 83-year-old male, prior smoker with severe COPD, who has been steroid dependent. He has had multiple exacerbations. I saw him when he was admitted here on 07/14/2018 and 07/15/2018. He was just still home on his prednisone taper and he states the last 3-4 days, he had an increasing peripheral edema, increased swelling, was more short of breath, had some PND and orthopnea and was still on a steroid taper. He had had some antibiotics and those were finished. He states he has mostly had a dry cough with some peripheral edema, no chest pain and was not on any oxygen at home. He is supposed to be on Lasix and spironolactone 50 mg a day at home. States he has been compliant with it. His feet are much more swollen today than they were even 2-3 weeks ago. He thinks his weight is up 3-5 pounds. He is now currently on 2 liters. No definite esophageal reflux, no definite sinus drainage as far as other exacerbating factors. PAST MEDICAL HISTORY: History of moderately severe COPD, steroid dependent and he has not been oxygen dependent yet. He did not go home on oxygen last hospital stay. He has had recurrent exacerbations. Over the last 3 months, he has been in the hospital every 2-3 weeks. Also has a history of chronic lymphocytic leukemia, non-Hodgkin's lymphoma on previous chemotherapy and Rituxan. This is 8-[address] Jonathan Cain up at [facility]. Currently, he was on ibrutinib or Imbruvica 140 mg daily. I think that had been on hold. The patient states that he was not taking that at home, although it was on his MAR sheet. It is an immunosuppressive for his CLL and non-Hodgkin's lymphoma. He had been on a higher dose at mg a day and then was down to 140 mg a day earlier in the month. He also takes some IVIG every 1-2 [place] [address] CONSULTATION Name: JAMES MIN JR Room: [address] IN ..#: [id number] Admission: 07/28/18 Attend Phys: James Fabian MD Discharge: Date of : 37 Report #: [id number] ALLERGIES: HE HAS ALLERGIES OR INTOLERANCE TO ADHESIVE TAPE. Previously thought, he was allergic to azithromycin, but he was on that recently in the hospital. He had no nausea or vomiting with that. OUTPATIENT MEDICATIONS: Include albuterol nebulizer treatments 2-4 times a day followed by the Bevespi inhaler 2 puffs twice a day. He previously on Stiolto, also on apixaban 5 mg b.i.d. for atrial fibrillation and the prednisone taper was at about 20 mg a day again either for his COPD and/or his chronic lymphocytic leukemia and COPD, also has Tessalon Perles and flecainide 50 mg b.i.d. and the Imbruvica was at 140 mg daily, is still on hold. OTHER PAST MEDICAL HISTORY: He has a history of prostate cancer 10 years ago. No evidence of recurrence, followed by radiation therapy, history of CLL, non-Hodgkin's lymphoma made by biopsy and again, this was 8-10 years ago at [facility]. He has some mild gastroesophageal reflux disease, not active at this time and severe COPD with hypogammaglobulinemia on IVIG for the last 3-6 months. Also, has chronic diastolic congestive heart failure, fluid overload with peripheral edema. PAST SURGICAL HISTORY: Includes hydrocele repair, cholecystectomy and hernia repair and tonsillectomy. FAMILY HISTORY: Negative for premature cardiopulmonary disease. No family history of lymphoma. 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 He was not cutting it. He was holding the rolls that they were packed in. He has a [id number] history of smoking when he was young, he quit in mid 1960s. Denies any alcohol or illicit drug use. REVIEW OF SYSTEMS: A 14-point review of systems reviewed and negative except for pertinent positives noted by the patient in the history of present illness. PHYSICAL EXAMINATION: GENERAL: Pleasant 83-year-old male, in mild distress. He is on 3 liters nasal, can talk to me in full sentences. VITAL SIGNS: Blood pressure was 103/71, his heart rate is 96, respirations are 20, his temperature is 36.3 degrees and saturation on 3 liters was 94%. HEENT: Unremarkable. No increase in jugular venous pressure. Mucous membranes were moist, hypertrophy sternocleidomastoid muscles were noted. CHEST: Showed bilateral rhonchi and occasional expiratory wheeze. CARDIOVASCULAR: Regular rate and rhythm without murmur, gallop or rub and heart rates in the 90s. No S3 is noted. ABDOMEN: Soft, without masses or megaly. EXTREMITIES: Show 2+ pedal edema up to his mid calves [place] [address] CONSULTATION Name: JAMES MIN JR Room: [address] IN [facility].#: [id number] Admission: 07/28/18 Attend Phys: James Fabian MD Discharge: Date of : 37 Report #: [id number] NEUROLOGIC: Grossly intact, although he is somewhat weak. SKIN: Dry and intact. LABORATORY DATA: Hemoglobin from late yesterday afternoon, hemoglobin is 14, white count is 11,900, platelets 140,000. Differential shows 64% segmented neutrophils and 29% lymphocytes and absolute neutrophil count 7600. No increase in eosinophils, monocytes were normal. Sodium is 131, potassium is 3.8, chloride is 94, bicarb is elevated at 32, BUN was 20 and creatinine is 1.1. Anion gap was 5. Lactic acid was 1.6. Calcium was 8.2. LFTs, albumin was slightly low at 3.0, lipase was mildly high at 408 and total protein was high at 6000. Chest x-ray shows COPD and hyperinflation. CT angio of the chest previously showed same with some ground glass infiltrates and CT of the chest dated 07/28/2018 yesterday again showed no abnormal mediastinal masses. Ground glass infiltrates had resolved and otherwise, he looked okay on this film. IMPRESSION AND PLAN: Chronic obstructive pulmonary disease, severe with multiple exacerbations. Even though previous echo from 06/2018 was relatively unremarkable, left ventricular ejection fraction of 60% and pulmonary artery pressure of 35. I think the patient has some clinical pulmonary hypertension and some peripheral edema, which may be exacerbating the situation. His cough and sputum do not seemed to be that much out of control and again, I am not sure how well he takes his nebulizer treatments at home. Would continue on with steroid taper as you have done before and see if we can set him up for oxygen at home and then also, I gave him 1 dose of IV Lasix. He will have to follow daily weights at home. He may need home health nurses to come see him 3 times a week and see if we can either keep him in the home, may be care home facility for 5 to 7 days would be an option and again see if we can get him to continue to diurese and not just flareup and end up back in the hospital. I agree the patient would not be a good ventilator candidate and so discussing palliative care and hospice might be a good option for this patient and see if we can get through to him start doing things we have asked him to do. Again at some point in time if we could do some spirometry on him, get some numbers for prognostic reasons, but I think he has fairly advanced disease. , thanks again for allowing us to participate in this man's care. We will follow up along with you and see if we can put him home on a prednisone taper and some diuretics and see if we can get the rest of the fluid out and stay out. He will follow up with Dr. Jewel Barrera, his primary transit department clerk out at [place] or out in the [facility] in [place], [place]. Again, overall prognosis is somewhat guarded. We will see what we can do to help this man out. <ELECTRONICALLY SIGNED> By: Celso Rosario MD 07/30/18 5728 1229 [id number] Dorado MD /camila
--- NOTE | 2018-07-30 16:38 | NUR ---
PATIENT UP IN CHAIR OFF AND ON THIS SHIFT. UP WITH SBA. 02 3L NC REMAINS IN PLACE. IV REMAINS SL. BELLOWS TESTER REMAINS IN PLACE. PATIENT SHOWERED THIS EVENING. PATIENT REQUESTING PRN MORPHINE THIS AFTERNOON FOR SOA, REQUESTING A PRN XANAX THIS EVENING. GIVEN PER MAR ORDERS. CM WAS CONS AND SPOKE WITH PATIENT REGARDING PALLATIVE CARE VS HOSPICE.
--- NOTE | 2018-07-30 18:00 | EKG ---
[place] [address] ELECTROCARDIOGRAM REPORT Name: JAMES MIN JR Room: [address] ADM IN M.R.#: [id number] Admission: 07/28/18 Attend Phys: James Fabian MD Discharge: Date of : 37 Report #: [id number] THIS REPORT FOR: //name// [facility] ED Test Date: 2018-07-28 Test Time: 20:46:50 Pat Name: JAMES MIN Department: Room: [facility] Gender: M Animal Skinner: : 1935 Requested By: Betty Jack Order Number: [id number] MD: Jed Clements Measurements Intervals [place] Rate: 83 P: 87 WI: 197 QRS: 96 QRSD: 98 T: 57 QT: 367 QTc: 432 Interpretive Statements Sinus rhythm Right axis deviation Nonspecific ST segment abnormality Compared to ECG 07/28/2018 13:37:45 No significant changes Electronically Signed On 07-30-2018 18:00:00 FIRE APPARATUS SPRINKLER INSPECTOR by Jed Clements [email or web address] <ELECTRONICALLY SIGNED> By: Jed Clements MD, [facility] [id number] Jed Clements MD, FAC /EPI
[2018-07-30 21:00] VITALS: BP 136/86
[2018-07-30 23:30] VITALS: BP 119/75
[2018-07-31 03:15] VITALS: BP 117/72
[2018-07-31 04:37] LABS: HEMATOCRIT 39.5 % (42.0-52.0); HEMOGLOBIN 13.5 gm/dL (14.0-18.0); MCH 33.3 pg (26.0-34.0); MCHC 34.3 g/dL (28.0-37.0); RBC 4.07 mil/uL (4.50-6.00); RDW-CV 16.1 % (10.5-14.5); WBC 16.8 thou/uL (4.0-11.0)
[2018-07-31 04:39] LABS: CALCIUM 8.9 mg/dL (8.5-10.1); CREATININE 1.2 mg/dL (0.6-1.3); MAGNESIUM 2.2 mg/dL (1.8-2.4); POTASSIUM 4.5 mmol/L (3.5-5.1)
--- NOTE | 2018-07-31 05:30 | NUR ---
PATIENT SLEPT MOST OF THE NIGHT. NEW IV WAS STARTED CHARTED AND REMAINS SALINE LOCKED. PATIENT WAS GIVEN ANXIETY MEDS TWICE AND ORAL MORPHINE TWICE FOR SHORTNESS OF AIR. PATIENT REMAINS ON OXYGEN AT 3L PER NASAL CANNULA. WILL CONTINUE TO MONITOR.
[2018-07-31 08:00] VITALS: BP 107/73
[2018-07-31 12:00] VITALS: BP 119/71
[2018-07-31 16:22] VITALS: BP 119/71
--- NOTE | 2018-07-31 18:11 | NUR ---
PATIENT RESTING IN BED. PATIENT IS UP WITH STANDBY ASSIST. PATIENT HAS BEEN UP TO CHAIR FOR MEALS. PATIENT IS SHORT OF AIR WITH EXERTION. PATIENT HAS OXYGEN ON AT 2L/NC. PATIENT DENIES ANY PAIN. PATIENT DENIES ANY NEEDS AT THIS TIME. CALL LIGHT WITHIN REACH. TAYLOR CONTINUE TO MONITOR.
[2018-07-31 23:40] VITALS: BP 129/78
[2018-08-01 03:33] VITALS: BP 110/61
[2018-08-01 04:09] LABS: HEMATOCRIT 37.6 % (42.0-52.0); HEMOGLOBIN 12.6 gm/dL (14.0-18.0); MCH 33.2 pg (26.0-34.0); MCHC 33.6 g/dL (28.0-37.0); MCV 98.9 fL (80.0-100.0); MPV 7.1 fl. (7.2-11.1); RBC 3.81 mil/uL (4.50-6.00); RDW-CV 15.7 % (10.5-14.5); WBC 13.3 thou/uL (4.0-11.0)
[2018-08-01 04:27] LABS: CALCIUM 8.4 mg/dL (8.5-10.1); CREATININE 1.1 mg/dL (0.6-1.3); MAGNESIUM 2.3 mg/dL (1.8-2.4); POTASSIUM 4.2 mmol/L (3.5-5.1)
--- NOTE | 2018-08-01 07:33 | NUR ---
PATIENT SLEPT PART OF THE NIGHT. IV REMAINS SALINE LOCKED. PATIENT REMAINS ON OXYGEN AT 2L PER NASAL CANNULA. PATIENT WAS GIVEN ANXIETY MEDICINE ONCE. WILL CONTINUE TO MONITOR.
[2018-08-01 07:45] VITALS: BP 106/73
[2018-08-01 12:16] VITALS: BP 109/71
--- NOTE | 2018-08-01 16:16 | NUR ---
SW met with pt and pt this morning to discuss Palliative Care Consult again as it was discussed on 07/29 and they only wanted HH at the time but SW discussed Palliative Care inside outside sales representative can meet with pt to provide information and eval for services. Pt was receptive to the possibility; pt said to pt that she "feels like they are always trying to sell us something". SW sent referral information to [facility] and a nurse from their team met with pt and pt . SW discussed possible dc soon and encouraged pt and pt to consider home with HH and Palliative Care and possible transition to hospice. SW to continue to follow to assist with safe dc planning.
[2018-08-01 16:47] VITALS: BP 124/81
--- NOTE | 2018-08-01 19:35 | NUR ---
PATIENT RESTING IN BED. PATIENT DENIES ANY PAIN. PATIENT IS SHORT OF AIR WITH EXERTION WITH SLOW RECOVERY TIME. PATIENT HAS OXYGEN ON AT 2L/NC. PATIENT IS UP AD JUANCHO IN ROOM. PATIENT HAS GOOD APPETITE. PATIENT DENIES ANY NEEDS AT THIS TIME. CALL LIGHT WITHIN REACH. WILL CONTINUE TO MONITOR.
[2018-08-02] VITALS (7 sets, daily range): BP systolic 102–150; BP diastolic 61–92
--- NOTE | 2018-08-02 05:52 | NUR ---
PATIENT SLEPT OFF AND ON DURING THE NIGHT. PT ON LONG O2 TUBING AT 2LITERS. PT SITING ON SIDE OF BED C/O DIFFICULTY BREATHING. PT REQUESTED MORPHINE FOR AIR HUNGER X1. PT DENIES PAIN. SALINE LOCK IN LT AC PATENT. FREQUENTLY USED ITEMS AND CALL LIGHT WITTHIN REACH. SIDERAILS UPX2. WILL CONTINUE TO MONITOR.
--- NOTE | 2018-08-02 19:57 | NUR ---
PATIENT HAS BEEN A/O X 4 THIS SHIFT. PATIENT HAS DENIED PAIN, DOES BECOME ANXIOUS AND SHORT OF BREATH. PATIENT REMAINS ON O2, PATIENT ASKED TO HAVE O2 INREASED DUE TO O2 SAT BEING 89-90%. O2 INCREASED TO 3L/NC. PATIENT CONTINUES ON QUALITY COORDINATOR, TRACING ST. PATIENT UP TO SIDE OF BED FOR MOST OF SHIFT. CONTINUES ON IV STEROIDS/RT TREATMENTS. PATIENT HAD SPONGE BATH THIS AFTERNOON WITH ASSIST FROM . PATIENT STATED HE WAS EXPERIENCING INCREASED SHORTNESS OF BREATH THIS EVENING, RT PAGED AND DR BROWN NOTIFIED, NO NEW ORDERS NOTED. HOURLY ROUNDING MAINTAINED. CALL LIGHT WITHIN REACH. WILL CONTINUE WITH PLAN OF CARE.
[2018-08-03 03:55] VITALS: BP 100/51
--- NOTE | 2018-08-03 05:53 | NUR ---
PT SLEPT OFF AND ON OVERNIGHT,MOSTLY SITTING UPRIGHT TO EASE BREATHING. CO SOA AND GONZALEZ AT START OF SHIFT, RT TX GIVEN AND DR NOTIFIED. O2 4L NC SAT 91%. UP TO TRANSFER FROM BED TO BSC TO VOID OVERNIGHT. LAC SL, SOLUMEDROLG IVEN ORDERED. RT TX GIVEN SCHEDULED. RECEIVING XANAX AND PO MORPHINE PRN FOR AIR HUNGER WITH SOME RELIEF. PT STATES THIS MORNING THAT HE HAD "A LITTLE BETTER NIGHT LAST NIGHT". AM LABS DRAWN. EDEMA TO FEET. ABLE TO USE CALL LITE AND MAKR NEEDS KNOWN. CALL LITE IN EASY REACH. DENIES NEEDS THIS MORNING.
[2018-08-03 08:40] VITALS: BP 125/77
--- NOTE | 2018-08-03 13:07 | NUR ---
PATIENT'S AND PATIENT WISH TO NOT HAVE PULMONARY UPDATED UNTIL SATURDAY WHEN DR FLEMING REASSESSES PATIENT. PATIENT LESS SHORT OF AIR AFTER XANAX GIVEN THIS AFTERNOON.
[2018-08-03 16:53] VITALS: BP 112/73
[2018-08-03 20:00] VITALS: BP 87/55
--- NOTE | 2018-08-03 20:00 | NUR ---
RECEIVED REPORT AND ASSUMED CARE OF PT, ASSESSMENT COMPLETED. PT SITTING AT SIDE OF BED LEANING ON OVERBED TABLE FOR EASE OF BREATHING. PT APPEARANCE VERY TIRED AND WARN OUT. RESP LABORED AND DYSPNIC. O2 ON AT 15L/HFC WITH SAT 88%. DISCUSSED VENTIMASK BUT REFUSED. STAYING AT BEDSIDE. TELEMETRY ON SHOWING ST. WILL CONT TO MONITOR AND ASSIST NEEDED.
--- NOTE | 2018-08-03 20:03 | NUR ---
PATIENT HAS BEEN A/O X 4 THIS SHIFT. PATIENT HAS DENIED PAIN. PATIENT CONTINUES ON AIR CONTROL ELECTRONICS OPERATOR TRACING SINUS TACH, RATE IN THE 120s FOR MOST OF SHIFT. PATIENT STATED FEELING SHORT OF BREATH ALL SHIFT WITH LABORED BREATHING, USING ACCESSORY MUSLCES TO HELP WITH BREATHING. O2 INCREASED TO 15L HIGH FLOW NC THIS SHIFT WITH O2 SATS AROUND 90%. PATIENT DOES BECOME EXTREMELY DYSPNEIC WITH EXERTION. AGREEABLE TO TAKING ORAL ROXANOL AND XANAX TO HELP WITH AIR HUNGER. PATIENT REFUSING TO TURN, SITTING ON SIDE OF BED TO HELP WITH BREATHING. PATIENT HAS BECOME WEAKER THIS SHIFT. [place] WITH [place]2 [place] [facility] [place], TAKING ENSURE WHEN ENCOURAGED. SALINE LOCK PATENT AND STEROIDS CONTINUED. PATIENT CONTINUES ON RT TREATMENTS. ABGs COMPLETED THIS SHIFT. SPOUSE AT BEDSIDE MOST OF SHIFT AND IS PLANNING ON SPENDING THE NIGHT WITH PATIENT. FREQUENT OBSERVATIONS MADE THROUGHOUT THE SHIFT AND HOURLY ROUNDING MAINTAINED. FALL PRECAUTIONS IN PLACE. CALL LIGHT WITHIN REACH. WILL CONTINUE WITH PLAN OF CARE.
[2018-08-04] VITALS: BP 101/42
--- NOTE | 2018-08-04 07:00 | NUR ---
PT ABLE TO REST AFTER ROXINAL AND XANAX. CONT SITTING UPON SIDE OF BED LEANING OVER BEDSIDE TABLE. O2 ON AT 15L/HFC, RESP DID ATTEMPT TO CHANGE O2 DEVICE BUT PT UNABLE TO TOLERATE IT. PT HYPOXIC WITH SAT OF 82%. AM LAB DRAW HELD. STAYING AT BEDSIDE. TELEMETRY CONT TO SHOW ST. HS GOALS OF REST AND SAFETY ACHIEVED. HOURLY ROUNDING OBSERVED.
--- NOTE | 2018-08-04 10:49 | NUR ---
PATIENT ASSESSMENT SHOWED LABORED BREATHING WITH RESPIRATIONS AT 38 AND O2 SATS IN 70'S. PATIENT LETHARGIC. AT BEDSIDE. UNABLE TO OBTAIN ACCURATE BLOOD PRESSURE DO TO PATIENT RESTLESSNESS. DR HOLLIS AND DR FLEMING NOTIFIED. DR FLEMING ORDERED MORPHINE FOR COMFORT AND DR HOLLIS ROUNDED ON PATIENT. HOSPICE AND COMFORT CARE DISCUSSED WITH PATIENT'S . PATIENT GIVEN ORDERED MORPHINE AND PATIENT REPOSITIONED INTO BED. PATIENT AT 0850, DR HOLLIS STILL ON UNIT AND PRONOUNCED. PATIENT'S AT BEDSIDE AT TIME OF . SPEAKS [facility] CHOSEN AT THIS TIME.
--- NOTE | 2018-08-04 12:30 | NUR ---
PATIENT LEFT TO SPEAKS HOME BY TRANSPORTER AT THIS TIME. CHECKED OUT WITH SECURITY. WEDDING BAND ON PATIENT. FLANNEL PANTS AND SHIRT SENT IN BAG WITH TRANSPORTER.
== END 2018-08-04 08:50 | DRG 189 ==
LOC: M.ERS 13:25 → M.TBA-ER 15:50 → M.3W 15:50
PROVIDERS: Emergency Medicine Emergency Medical Services; ADMIT Internal Medicine
DX: J96.21 Acute and chronic respiratory failure with hypoxia (principal); I50.32 Chronic diastolic (congestive) heart failure; J44.1 Chronic obstructive pulmonary disease with (acute) exacerbation; C91.10 Chronic lymphocytic leukemia of B-cell type not having achieved remission; D80.1 Nonfamilial hypogammaglobulinemia; E44.0 Moderate protein-calorie malnutrition; C85.90 Non-Hodgkin lymphoma, unspecified, unspecified site; R65.10 Systemic inflammatory response syndrome (SIRS) of non-infectious origin without acute organ dysfunction; Z51.5 Encounter for palliative care; Z66 Do not resuscitate; K22.5 Diverticulum of esophagus, acquired; I27.20 Pulmonary hypertension, unspecified; K21.9 Gastro-esophageal reflux disease without esophagitis; I48.91 Unspecified atrial fibrillation; Z85.46 Personal history of malignant neoplasm of prostate; Z92.3 Personal history of irradiation; Z90.49 Acquired absence of other specified parts of digestive tract; Z87.01 Personal history of pneumonia (recurrent); Z88.1 Allergy status to other antibiotic agents; Z91.048 Other nonmedicinal substance allergy status; Z79.52 Long term (current) use of systemic steroids; Z87.891 Personal history of nicotine dependence; Z68.22 Body mass index [BMI] 22.0-22.9, adult; Z99.81 Dependence on supplemental oxygen